=== PATIENT | female | born 1940 | race Caucasian/White ===

== ENCOUNTER 2020-01-13 07:48 | Observation (INO) ==
--- NOTE | 2019-12-11 14:23 | PAT Medication Instructions ---
Medication Instructions Date of Service December 11, 2019 Home Medications Bentyl 20 mg PO UD PRN L.rhamn A-191-L.ac-B.becky-B.noris [Probiotic] 1 cap PO QAM aspirin 81 mg PO QAM cephalexin 500 mg PO TID cetirizine [Zyrtec] 5 mg PO QAM cranberry 1 tab PO QAM docusate sodium [Stool Softener] 100 mg PO QPM esomeprazole magnesium [Nexium] 40 mg PO QAM fluoride (sodium) [Edkimo] 1 applic DENTAL DAILY aznjvjfg-spqzk-tqjca-CF borate [Assmbly] 2 tab PO QPM metronidazole [Metrogel] 1 applic TOPICAL DAILY multivitamin 1 tab PO QAM Continue as directed cephalexin 500 mg PO TID STOP taking 2 weeks before surgery (or as soon as possible if surgery is within 2 weeks) cranberry 1 tab PO QAMY khdoyobt-dcbgn-xvubl-CF borate [Assmbly] 2 tab PO QPM STOP taking 24 hours before surgery metronidazole [Metrogel] 1 applic TOPICAL DAILY DO NOT take the morning of surgery Bentyl 20 mg PO UD PRN L.rhamn A-191-L.ac-B.becky-B.noris [Probiotic] 1 cap PO QAM cetirizine [Zyrtec] 5 mg PO QAM fluoride (sodium) [Edkimo] 1 applic DENTAL DAILY multivitamin 1 tab PO QAM Take morning of surgery With a small sip of water, OTHERWISE NOTHING TO EAT OR DRINK AFTER MIDNIGHT: aspirin 81 mg PO QAM esomeprazole magnesium [Nexium] 40 mg PO QAM Take evening before surgery Bentyl 20 mg PO UD PRN (if needed) docusate sodium [Stool Softener] 100 mg PO QPM Other Notes If you have any questions please call us at [phone] or [phone] or [phone] or [phone]
--- NOTE | 2019-12-14 11:37 | Anesthesiology Consultation ---
Date of Service December 14, 2019 Assessment & Plan (1) Encounter for pre-operative examination: *Per PAT assessment on 12/13: Travel screen negative. No known COVID-19 positive contacts. No current COVID-19 related symptoms. Surgeon arranging preop COVID testing. Awaiting results. - Possible difficult intubation d/t anatomy Chart Review Chart Review: Acceptable Risk for Surgery (pending surgeon-ordered PCP clearance (Dr. Browning/Mouna)) and Patient seen in Pre Admission Testing Teaching & Discussion Pre-Anesthesia Teaching/Discussion Notes: Instructed NPO after midnight before surgery,except medications with 15 cc of water. Medication instructions provided according to the PAT guidelines. History Surgery Operation Date: 01/13/20 10:10 Proposed Procedures p Right Total Knee Arthroplasty - Edward You DO Height/Weight Height: 5 ft Weight: 83.7 kg Allergies Allergy/AdvReac Type Severity Reaction Status Date / Time No Known Allergies Allergy Verified 12/09/19 10:54 Medications Home Medications Medication Instructions Recorded Confirmed Last Taken Bentyl 20 mg PO UD PRN 12/09/19 12/09/19 Unknown L.rhamn A-191-L.ac-B.becky-B.noris 1 cap PO QAM 12/09/19 12/09/19 Unknown [Probiotic] aspirin 81 mg PO QAM 12/09/19 12/09/19 Unknown cephalexin 500 mg PO TID 12/09/19 12/09/19 Unknown cetirizine [Zyrtec] 5 mg PO QAM 12/09/19 12/09/19 Unknown cranberry 1 tab PO QAM 12/09/19 12/09/19 Unknown docusate sodium [Stool Softener] 100 mg PO QPM 12/09/19 12/09/19 Unknown esomeprazole magnesium [Nexium] 40 mg PO QAM 12/09/19 12/09/19 Unknown fluoride (sodium) [Prevident 5000 1 applic DENTAL DAILY 12/09/19 12/09/19 Unknown Ortho Defense] sgmrmtym-foohv-ppubg-CF borate 2 tab PO QPM 12/09/19 12/09/19 Unknown [[facility]] metronidazole [Metrogel] 1 applic TOPICAL DAILY 12/09/19 12/09/19 Unknown multivitamin 1 tab PO QAM 07/29/20 07/29/20 Unknown Past Medical History Medical History Cellulitis cellulitis at site of bug bite (RLE) significantly improving on abx Degenerative disc disease Diverticular disease GERD (gastroesophageal reflux disease) controlled History of DVT (deep vein thrombosis) 2006 (LUE) possibly r/t premarin/IV - treated with AC x 6 mo History of pulmonary embolism 2010 felt r/t premarin - treated with AC x 6 months IBS (irritable bowel syndrome) Mixed sleep apnea BiPAP Obesity Osteoarthritis TMJ dislocation h/o Urinary incontinence Exercise / Class Metabolic Activity III < 4 Walking/Shop/Light housework (uses cane PRN) Past Family History Family History Father Diabetes Other No family history of adverse response to anesthesia Past Surgical History Surgical History History of appendectomy History of arthroscopy of left knee History of bilateral breast reduction surgery History of cardiac catheterization 2003 - no stents History of colonoscopy History of esophagogastroduodenoscopy (EGD) History of hysterectomy History of surgery pelvic floor lift History of tonsillectomy Past Anesthesia History No Hx of Anesthesia Complications (except PONV) and No Family Hx of Anesthesia Complications History of PONV No Hx of Motion Sickness and History of PONV (improvement with scope patch in the past per patient) Social History Smoking Status: Never smoker Do You Dip or Chew Tobacco: No Hx Alcohol Use: Yes Alcohol Intake Frequency Comment: once per month Hx Substance Use: No substance use type: does not use Review of Systems Patient denies chest pain, shortness of breath, fever, chills, cough, wheezing, palpitations. Physical Exam Vital Signs VITALS BP 111/76 P 67 TEMP 98.0 SP02 95%RA RESP 18 PHYSICAL Full neck and c-spine range of motion. Full TMJ range of motion. TMD 2.5 finger breaths Mallampati Score 3 (small oral opening) Dentition: upper left side tooth implant Lungs: clear throughout to auscultation Cardiac: regular rate and rhythm, no murmurs noted Spine: normal Carotid arteries: negative bruit Extremities: non-pitting edema Testing Laboratory Results 12/14/19 12:20 12/14/19 12:20 PT 10.9 Seconds (9.0-12.0) 12/14/19 12:20 INR 1.0 (0.9-1.1) 12/14/19 12:20 APTT 31.3 Seconds (21.0-31.0) H 12/14/19 12:20 Hemoglobin A1c 6.0 % (4.5-5.6) H 12/14/19 12:20 Urine Color Yellow 12/14/19 12:20 Urine Appearance Clear (Clear) 12/14/19 12:20 Urine pH 6.5 (4.5-7.5) 12/14/19 12:20 Ur Specific [place] 1.014 (1.000-1.030) 12/14/19 12:20 Urine Protein Negative (Negative) 12/14/19 12:20 Urine Glucose (UA) Negative (Negative) 12/14/19 12:20 Urine Ketones Negative (Negative) 12/14/19 12:20 Urine Nitrite Negative (Negative) 12/14/19 12:20 Ur Leukocyte Esterase Negative (Negative) 12/14/19 12:20 Blood Type O Positive 12/14/19 12:20 Antibody Screen NEGATIVE 12/14/19 12:20 Electrocardiogram Date: 12/14/19 NSR at 65bpm. LAD. Chest X-Ray Date: 12/14/19 Findings: + NAD
--- NOTE | 2019-12-14 12:48 | XRay Report ---
XR chest Pre-admission PA/Lat CLINICAL HISTORY: pat preoperative COMPARISON STUDY: No previous studies for comparison. FINDINGS: The bones soft tissues and hemidiaphragms are normal. The cardiomediastinal silhouette is n ormal. The lungs are clear. The pulmonary vasculature is normal. IMPRESSION: Negative chest. ACT 112: Negative or not required by law. The above report was generated using voice recognition software. It may contain grammatical, syntax or spelling errors. Electronically signed by: Uriel Maddox M.D. 12/14/2019 12:47 PM
[2019-12-14 13:29] LABS: Basophils # (auto) 0.04 K/uL (0-0.2); Basophils % (auto) 0.6 %; Eosinophils # (auto) 0.16 K/uL (0-0.5); Eosinophils % (auto) 2.5 %; Hematocrit (blood only) 42.2 % (37-47); Hemoglobin 14.3 g/dL (12.0-16.0); Immature Granulocytes # (auto) 0.01 K/uL (0.00-0.02); Immature Granulocytes % (auto) 0.2 %; Lymphocytes # (auto) 2.06 K/uL (1.2-3.4); Lymphocytes % (auto) 32.1 %; Mean Corpuscular Hgb Conc 33.9 g/dL (32-36); Mean Corpuscular Volume 91.5 fL (80-100); Mean Platelet Volume 10.6 fL (7.4-10.4); Monocytes # (auto) 0.58 K/uL (0.11-0.59); Neutrophils # (auto) 3.56 K/uL (1.4-6.5); Neutrophils % (auto) 55.6 %; Platelet Count 268 K/uL (130-400); RDW Coefficient of Variation 13.7 % (11.5-14.5); Red Blood Count 4.61 M/uL (4.2-5.4); White Blood Count 6.41 K/uL (4.8-10.8)
[2019-12-14 13:33] LABS: Appearance Urine Clear (Clear); Bilirubin Urine Negative (Negative); Blood Urine Negative (Negative); Color Urine Yellow; Glucose Urine UA Negative (Negative); Ketones Urine Negative (Negative); Leukocyte Esterase Urine Negative (Negative); Nitrite Urine Negative (Negative); Protein Urine Negative (Negative); Specific Gravity Urine 1.014 (1.000-1.030); Urobilinogen Urine Negative (Negative); pH Urine 6.5 (4.5-7.5)
[2019-12-14 13:39] LABS: Partial Thromboplastin Ratio 1.1; Partial Thromboplastin Time 31.3 Seconds (21.0-31.0); Prothrombin Time 10.9 Seconds (9.0-12.0)
[2019-12-14 13:53] LABS: Estimated Average Glucose 126 mg/dl
[2019-12-14 13:54] LABS: Albumin Level 3.5 gm/dl (3.4-5.0); BUN Creatinine Ratio 28.3 (10-20); Calcium 10.2 mg/dl (8.5-10.1); Creatinine Clr Calc Pharmacy 62.8 ml/min; Est GFR (African American) 93.6; Est GFR (Non-African American) 80.8; Potassium 4.2 mmol/L (3.5-5.1)
--- NOTE | 2019-12-14 17:56 | Electrocardiogram Report ---
Test Reason : Blood Pressure : / mmHG Vent. Rate : 065 BPM Atrial Rate : 065 BPM P-R Int : 156 ms QRS Dur : 084 ms QT Int : 410 ms P-R-T Axes : 069 -74 040 degrees QTc Int : 426 ms Normal sinus rhythm Left axis deviation Abnormal ECG No previous ECGs available Confirmed by Eduardo Norton ([id number]) on 12/14/2019 5:55:43 PM Referred By: Edward You Confirmed By:Brendan Norton
--- NOTE | 2019-12-15 08:48 | History & Physical Report ---
Date of Service December 15, 2019 date of surgery: 01-13-20 Procedure: right total knee replacement Assessment & Plan (1) Arthritis of right knee: Risks and benefits of procedure discussed in detail today, patient would like to proceed with a Right total knee replacement at [facility] as scheduled. will obtain medical clearance prior to surgery as well as obtain PATs at [facility]. Will place on ASA 81mg po bid x 1 month post op, f/u 2 weeks post op for routine post-operative care and x-ray, sooner if having any problems. will make arrangements for HHPT at the time of discharge. At this point in time, has failed conservative measures and would like to proceed with surgical intervention. The risks and benefits have been discussed including, but not limited to, risk of infection, nerve injury, stiffness, loss of motion, failure to improve, etc. Reasonable outcomes and options of treatment were discussed. An explanation of appropriate alternatives to the procedure that may be advantageous were discussed and their risks and benefits, as well as the risks and benefits of not proceeding with treatment. I offered to answer any additional inquiries concerning the treatment involved. All the patient's questions were answered. The patient is agreeable, understanding of the treatment plan and alternatives, and wishes to proceed with the treatment plan. History of Present Illness Chief Complaint: Right knee pain Primary Care Provider: NO PCP Ms Oconnor is a 79 year old female who complains of Right knee pain, presents for pre-op eval prior to a right total knee replacement at [facility]. She presents with pain, stiffness and decreased motion in her right knee. She states that the symptoms have been chronic non-traumatic. her symptoms occur constantly and are gradually worsening. Currently the patient states that the symptoms are moderate-severe. The pain is described as aching and throbbing. She rates her current pain as 5/10. The symptoms are aggravated by daily activities. PATIENT HAS TRIED CORITSONE INJ, TRIED VISCO INJECTION, HAS TRIED CBD OIL, HAS TRIED VOLTAREN GEL, HAS TRIED OTC NSAIDS, ALL WERE OF NO HELP. she does use a cane to assist with ambulation. Allergies Allergy/AdvReac Type Severity Reaction Status Date / Time No Known Allergies Allergy Verified 12/09/19 10:54 Home Medications Home Medications Medication Instructions Recorded Confirmed Type Bentyl 20 mg PO UD PRN 12/09/19 12/09/19 History L.rhamn A-191-L.ac-B.becky-B.noris 1 cap PO QAM 12/09/19 12/09/19 History [Probiotic] aspirin 81 mg PO QAM 12/09/19 12/09/19 History cephalexin 500 mg PO TID 12/09/19 12/09/19 History cetirizine [Zyrtec] 5 mg PO QAM 12/09/19 12/09/19 History cranberry 1 tab PO QAM 12/09/19 12/09/19 History docusate sodium [Stool Softener] 100 mg PO QPM 12/09/19 12/09/19 History esomeprazole magnesium [Nexium] 40 mg PO QAM 12/09/19 12/09/19 History fluoride (sodium) [Prevident 5000 1 applic DENTAL DAILY 12/09/19 12/09/19 History Ortho Defense] irqdvmdr-pqjhy-gfumq-CF borate 2 tab PO QPM 12/09/19 12/09/19 History [[facility]] metronidazole [Metrogel] 1 applic TOPICAL DAILY 12/09/19 12/09/19 History multivitamin 1 tab PO QAM 12/09/19 12/09/19 History Past Med/Surg History Medical History Cellulitis cellulitis at site of bug bite (RLE) significantly improving on abx Degenerative disc disease Diverticular disease GERD (gastroesophageal reflux disease) controlled History of DVT (deep vein thrombosis) 2006 (LUE) possibly r/t premarin/IV - treated with AC x 6 mo History of pulmonary embolism 2010 felt r/t premarin - treated with AC x 6 months IBS (irritable bowel syndrome) Mixed sleep apnea BiPAP Obesity Osteoarthritis TMJ dislocation h/o Urinary incontinence Surgical History History of appendectomy History of arthroscopy of left knee History of bilateral breast reduction surgery History of cardiac catheterization 2003 - no stents History of colonoscopy History of esophagogastroduodenoscopy (EGD) History of hysterectomy History of surgery pelvic floor lift History of tonsillectomy Family History Father Diabetes Other No family history of adverse response to anesthesia Social History Smoking Status: Never smoker Second Hand Exposure: No; Do You Dip or Chew Tobacco: No; Hx Alcohol Use: Yes Hx Substance Use: No Preferred Language: Austrian Communication Ability: Effective Toolsmith Required: No Beliefs That Will Affect Care: Jehovah'S Witness Jehovah'S Witness Beliefs: religious Current Living Situation: Spouse Feels Safe at Home: Yes Safety Concerns: Feels Safe At This Time Review of Systems Review of Systems: All systems reviewed & are unremarkable except as noted in HPI & below Constitutional: no fever, no chills and no sweats Respiratory: no cough and no dyspnea Cardiovascular: no chest pain, no dyspnea and no orthopnea Gastrointestinal: no abdominal pain, no nausea and no vomiting Musculoskeletal: as per Subjective / HPI Physical Exam Physical Exam: Ht: 5ft Wt: 83.7kg BP: 128/78 Constitutional: WD/WN, vitals as above no acute distress Respiratory: normal respiratory effort, lungs clear to auscultation no respiratory distress, no labored breathing and does not use accessory muscles Cardiovascular: RRR, no murmur, no edema Gastrointestinal (Abdomen): normal bowel sounds, soft, nontender, no hepatosplenomegaly Musculoskeletal: Knee: + knee abnormal to inspection (Right knee ), + effusion (+1 effusion), + limited ROM of knee (ROM 0/3/110), + knee ROM with crepitation, + joint line tenderness (medial joint line) and + Estella's sign positive; no deformity, no skin erythema, no ecchymosis, no valgus laxity, no varus laxity, anterior drawer test negative, Sunil's sign negative and pivot shift test negative Results & Data Results & Data ([facility]) Laboratory Results Laboratory Results WBC 6.41 K/uL (4.8-10.8) 12/14/19 12:20 RBC 4.61 M/uL (4.2-5.4) 12/14/19 12:20 Hgb 14.3 g/dL (12.0-16.0) 12/14/19 12:20 Hct 42.2 % (37-47) 12/14/19 12:20 MCV 91.5 fL (80-100) 12/14/19 12:20 MCH 31.0 pg (25-34) 12/14/19 12:20 MCHC 33.9 g/dL (32-36) 12/14/19 12:20 RDW Std Deviation 46.0 fL (36.4-46.3) 12/14/19 12: RDW Coeff of Poppy 13.7 % (11.5-14.5) 12/14/19 12:20 Plt Count 268 K/uL (130-400) 12/14/19 12: MPV 10.6 fL (7.4-10.4) H 12/14/19 12:20 Immature Gran % (Auto) 0.2 % 12/14/19 12:20 Neut % (Auto) 55.6 % 12/14/19 12:20 Lymph % (Auto) 32.1 % 12/14/19 12:20 Gregory % (Auto) 9.0 % 12/14/19 12:20 Eos % (Auto) 2.5 % 12/14/19 12:20 Baso % (Auto) 0.6 % 12/14/19 12:20 Neut # (Auto) 3.56 K/uL (1.4-6.5) 12/14/19 12:20 Lymph # (Auto) 2.06 K/uL (1.2-3.4) 12/14/19 12:20 Gregory # (Auto) 0.58 K/uL (0.11-0.59) 12/14/19 12:20 Eos # (Auto) 0.16 K/uL (0-0.5) 12/14/19 12: Baso # (Auto) 0.04 K/uL (0-0.2) 12/14/19 12: Immature Gran # (Auto) 0.01 K/uL (0.00-0.02) 12/14/19 12:20 PT 10.9 Seconds (9.0-12.0) 12/14/19 12:20 INR 1.0 (0.9-1.1) 12/14/19 12:20 APTT 31.3 Seconds (21.0-31.0) H 12/14/19 12:20 PTT Ratio 1.1 12/14/19 12:20 Sodium 140 mmol/L (136-145) 12/14/19 12:20 Potassium 4.2 mmol/L (3.5-5.1) 12/14/19 12:20 Chloride 107 mmol/L (98-107) 12/14/19 12:20 Carbon Dioxide 27 mmol/L (21-32) 12/14/19 12:20 Anion Gap 6.0 (3-11) 12/14/19 12:20 BUN 20 mg/dl (7-18) H 12/14/19 12:20 Creatinine 0.72 mg/dl (0.6-1.2) 12/14/19 12:20 Est Cr Clr Drug Dosing 62.8 ml/min 12/14/19 12:20 Est GFR ( Amer) 93.6 12/14/19 12:20 Est GFR (Non-Af Amer) 80.8 12/14/19 12:20 BUN/Creatinine Ratio 28.3 (10-20) H 12/14/19 12:20 Glucose 103 mg/dl (70-99) H 12/14/19 12:20 Estimat Average Glucose 126 mg/dl 12/14/19 12:20 Hemoglobin A1c 6.0 % (4.5-5.6) H 12/14/19 12:20 Calcium 10.2 mg/dl (8.5-10.1) H 12/14/19 12:20 Albumin 3.5 gm/dl (3.4-5.0) 12/14/19 12:20 Urine Color Yellow 12/14/19 12:20 Urine Appearance Clear (Clear) 12/14/19 12:20 Urine pH 6.5 (4.5-7.5) 12/14/19 12:20 Ur Specific [place] 1.014 (1.000-1.030) 12/14/19 12:20 Urine Protein Negative (Negative) 12/14/19 12:20 Urine Glucose (UA) Negative (Negative) 12/14/19 12:20 Urine Ketones Negative (Negative) 12/14/19 12:20 Urine Blood Negative (Negative) 12/14/19 12:20 Urine Nitrite Negative (Negative) 12/14/19 12:20 Urine Bilirubin Negative (Negative) 12/14/19 12:20 Urine Urobilinogen Negative (Negative) 12/14/19 12:20 Ur Leukocyte Esterase Negative (Negative) 12/14/19 12:20 Blood Type O Positive 12/14/19 12:20 Antibody Screen NEGATIVE 12/14/19 12:20 Diagnostic Findings Right Knee X-ray: Right knee series showing advanced degenerative changes to the right knee, narrowing of the medial compartment and patello-femoral joint with patellar spurring noted, findings showing joint space narrowing of the medial compartment and patello-femoral joint, osteophyte formation and subchondral sclerosis noted. overall varus alignment. no acute bony pathology noted.
[~2020-01-13 07:48] MED LIST: ACETAMINOPHEN 500 MG TAB PO SCH; CEFAZOLIN 2000MG 2,000 MG/15 ML SYR IV SCH; CeleBREX 200 MG CAP PO SCH; FAMOTIDINE 20 MG TAB PO SCH; GABAPENTIN 300 MG CAP PO SCH; LR 500ML BOLUS, THEN 15ML/HR IV SCH; METOCLOPRAMIDE HCL 10 MG TABLET PO SCH; ROPIVACAINE 0.5% HCL/PF 150 MG, BUPIVACAINE 0.5% MPF 30 ML, EPINEPHrine 30MG/30ML (OR U... INSTIL SCH; TRANEXAMIC ACID 1,000 MG **IV Intra-op IV SCH; TRANEXAMIC ACID 1,000 MG **IV Pre-op IV SCH; dexAMETHasone 4 MG TAB PO SCH
[2020-01-13] MEDS ORDERED: BUPIVACAINE 0.25% 30 ML VIAL ONE (08:33)
[2020-01-13] MEDS ORDERED: BUPIVACAINE 0.5 % 5 MG/1 ML PF 10ML VIAL ONE (08:33)
--- NOTE | 2020-01-13 09:23 | History & Physical Bridge Note ---
Date of Service January 13, 2020 History & Physical Bridge Note I have examined the patient, reviewed the History & Physical and in the interval since the performance of the History & Physical I have noted the following changes of clinical significance: no changes noted
[2020-01-13] MEDS ORDERED: MIDAZOLAM HCL 1 MG/ML 2ML VIAL ONE (09:25)
[2020-01-13] MEDS ORDERED: Nursing to Pharmacy Communication SCH (09:30)
[2020-01-13] MEDS ORDERED: BACITRACIN INJ 50,000 UNIT VIAL ONE (09:54)
[2020-01-13] MEDS ORDERED: ORTHO JOINT ANESTHETIC ONE (09:54)
[2020-01-13] MEDS ORDERED: fentaNYL citrate 100 MCG/2 ML VIAL IV PRN (10:11)
[2020-01-13] MEDS ORDERED: ONDANSETRON INJ 2 MG/ML 2 ML VIAL IV PRN ×2 (10:11→14:11)
[2020-01-13] MEDS ORDERED: ATROPINE SULFATE 0.1 MG/ML 10ML SYR IV PRN (10:11)
[2020-01-13] MEDS ORDERED: ePHEDrine sulfate 50 MG/ML AMP IV PRN (10:11)
[2020-01-13] MEDS ORDERED: PROPOFOL IV EMULSION 10 MG/ML 20 ML VIAL IV ONE (10:55)
--- NOTE | 2020-01-13 11:25 | Operative Report ---
Post Operative Report Pre & Post Diagnosis Operation Date: 01/13/20 10:45 Pre-Op Diagnosis: Unilateral Primary Osteoarthritis of Right Knee Post-Op Diagnosis: Unilateral Primary Osteoarthritis of Right Knee I identified the patient and participated in the time-out.: Yes Procedure Operation Date: 01/13/20 10:45 Actual Procedures p Right Total Knee Arthroplasty(Right) utilizing [employer] journey 2 patient matched total knee arthroplasty size 3 femur to tibia 15 polyethylene 29 oval patella- Edwadr You DO Surgeon Edward You DO Prospecting Driller Itz ESPINOSA Estimated Blood Loss 5 Findings Consistent with Post-Op Diagnosis Patient presents with ongoing complaints of pain lateral to the right knee no response to conservative management patient has severe end-stage DJD varus alignment [id number] subchondral sclerosis varus alignment marginal osteophytes and moderate to large effusion Specimens Bone and cartilage Drains Medium bore Hemovac Anesthesia Type MAC Spinal Regional Disposition Accompanied Patient To Recovery: No Disposition: Recovery Room Indications Patient presents with severe end-stage DJD right knee no response to co nservative management clinic physical therapy anti-inflammatories relative rest activity modification corticosteroid injection Visco supplementation above intraoperative findings no time surgery. Description of Procedure After proper prepping and draping of the Right lower extremity anterior midline incision was made over the region of the extensor extensor mechanism after meticulous hemostasis was obtained and maintained in subcutaneous tissues a medial parapatellar incision was made The patella was subluxed lateralward the medial lateral gutter were cleaned from any hypertrophic synovitis and scar tissue of the distal femoral block was placed and the distal femoral osteotomy cut was made subsequently the chamfers anterior and posterior osteotomy cuts were made utilizing the 4-in-1 block the tibia was subsequently subluxed anteriorward medial and ateral meniscal remnants were excised in their entirety remnants of the anterior and posterior cruciate ligaments were excised in their entirety excellent exposure of the proximal tibia was obtained the tibial osteotomy guide was placed on the proximal tibial osteotomy cut was made once ag ain the knee was irrigated with copious amounts of sterile saline solution the patella was subsequently everted lateralward thickened scar tissue around the patella was removed the patella was subsequently cut utilizing a freehand technique and was drilled prepared for final preparation and placement of patella socially flexion-extension gaps were checked and the equal and symmetric trials were placed to the appropriate femoral and tibial trials with poly-spacer being placed for equal flexion and extension gaps and full range of motion including extension to 0 and flexion to 140 the trial components after having been taken to recovery range of motion was subsequently removed meticulous hemostasis was obtained and maintained subsequently a knee block injection of joint cocktail including ropivacaine 0.5% 150 mg. Bupivacaine 0.5% epinephrine 1-200,030 mL's toradol 30 mg dexamethasone 4 mg ketamine 10 mg clonidine 100 micrograms normal saline solution 30 mg was infiltrated into the soft tissues of the posterior knee medial lateral gutters and periosteal synovium special attention was paid to protect neurovascular structures at all times subsequently trial components having been removed the knee was irrigated with sterile saline solution. debris was removed the proximal tibia was subsequently prepared and was made ready for the placement of the tibial component tibial component was also cemented and tamped into position the femoral component was subsequently placed and cemented in the position the patellar component was subsequently cemented in position because hemostasis once again obtained and maintained wound having been thoroughly irrigated with debridement and debridement lavage was performed as well as a medial parapatellar incision closed with #1 Vicryl in interrupted fashion subcutaneous was closed with #2 Vicryl skin was closed with skin clips. PA-C was necessary for prepping and drapping as well as wound closure of deep fascia Sub cutaneous tissue and skin and was necessary for the case. A sterile compressive dressing was placed patient was taken to recovery in stable condition of report dictated by Avelino I attest to the content of the Intraoperative Record and any orders documented therein. Any exceptions are noted below. I attest to the content of the Intraoperative Record and any orders documented therein. Any exceptions are noted below.
--- NOTE | 2020-01-13 12:57 | XRay Report ---
XR knee RT 1 or 2V routine CLINICAL HISTORY: Postoperative evaluation. COMPARISON: None FINDINGS: Alignment of the total right knee arthroplasty is anatomic. There is no periprosthetic fra cture or unexpected radiopaque foreign body. There are skin aram and surgical drains. IMPRESSION: Expected findings following total right knee arthroplasty. ACT 112: Negative or not required by law. Electronically signed by: Rohit West M.D. 01/13/2020 12:56 PM
[2020-01-13] MEDS ORDERED: bisacodyL 10 MG SUPP PR PRN (14:11)
[2020-01-13] MEDS ORDERED: MAGNESIUM HYDROXIDE SUSP 30 ML UDC PO PRN (14:11)
[2020-01-13] MEDS ORDERED: NALOXONE HCL 0.4 MG/1 ML VIAL/CARP IV PRN (14:11)
--- NOTE | 2020-01-13 15:12 | Anesthesiology Progress Note ---
Date of Service January 13, 2020 Anesthesia Post Procedure Vital Signs Vital Signs: Temp Pulse Pulse Resp BP Pulse Ox 01/13/20 15:10 74 18 126/75 94 01/13/20 13:30 68 12 112/61 98 01/13/20 13:20 36.0 C L 62 12 101/60 98 01/13/20 13:10 57 L 12 105/69 98 01/13/20 13:00 61 14 105/62 97 01/13/20 12:50 62 12 103/62 95 01/13/20 12:40 68 12 109/60 93 01/13/20 12:30 72 17 97/58 L 99 01/13/20 12:20 70 17 107/57 L 99 01/13/20 12:10 77 17 113/57 L 99 01/13/20 12:08 36.3 C L 84 13 103/54 L 98 01/13/20 09:48 68 20 131/73 98 01/13/20 08:31 36.8 C 68 18 141/88 H 96 Transfer of Care Handoff Completed per policy Notes Mental Status: alert / awake / arousable and participated in evaluation Patient Amnestic to Procedure: Yes Nausea / Vomiting: adequately controlled Pain: adequately controlled Airway Patency, RR, SpO2: stable & adequate BP & HR: stable & adequate Hydration State: stable & adequate Neuraxial Anesthesia: was administered and sensory block is resolving Anesthetic Complications: no major complications apparent and Pt Satisfied with anesthetic care
[2020-01-13] MEDS: SODIUM CHLORIDE 0.9% 1000ML 1,000 ML IV SCH (15:37)
[2020-01-13] MEDS: ACETAMINOPHEN 500 MG TAB PO SCH ×2 (15:39→21:30)
[2020-01-13] MEDS: FERROUS GLUCONATE 324 MG TAB PO SCH (18:20)
[2020-01-13] MEDS: CEFAZOLIN 2000MG 2,000 MG/15 ML SYR IV SCH (18:23)
[2020-01-13] MEDS: OXYCODONE HCL IR 5 MG TAB (IMMEDIATE RELEASE) PO PRN (20:24)
[2020-01-13] MEDS: SENNA 8.6 MG TAB PO SCH (20:26)
[2020-01-13] MEDS: ASPIRIN 325 MG ECTAB PO SCH ×2 (20:26→20:27)
[2020-01-13] MEDS: DOCUSATE SODIUM 100 MG CAP PO SCH (20:26)
[2020-01-14] MEDS: OXYCODONE HCL IR 5 MG TAB (IMMEDIATE RELEASE) PO PRN ×5 (01:26→22:33)
[2020-01-14] MEDS: CEFAZOLIN 2000MG 2,000 MG/15 ML SYR IV SCH (01:27)
[2020-01-14] MEDS: SODIUM CHLORIDE 0.9% 1000ML 1,000 ML IV SCH (01:27)
[2020-01-14] MEDS: HYDROmorphone INJ 0.5 MG/0.5 ML SYR IV PRN ×3 (02:55→13:53)
[2020-01-14] MEDS: ACETAMINOPHEN 500 MG TAB PO SCH ×3 (05:38→22:33)
[2020-01-14 05:59] LABS: Hematocrit (blood only) 35.2 % (37-47); Hemoglobin 11.5 g/dL (12.0-16.0); Mean Corpuscular Hemoglobin 30.1 pg (25-34); Mean Corpuscular Hgb Conc 32.7 g/dL (32-36); Mean Corpuscular Volume 92.1 fL (80-100); Mean Platelet Volume 10.3 fL (7.4-10.4); Platelet Count 213 K/uL (130-400); RDW Coefficient of Variation 13.5 % (11.5-14.5); RDW Standard Deviation 45.5 fL (36.4-46.3); Red Blood Count 3.82 M/uL (4.2-5.4); White Blood Count 9.99 K/uL (4.8-10.8)
[2020-01-14 06:34] LABS: BUN Creatinine Ratio 30.8 (10-20); Calcium 8.8 mg/dl (8.5-10.1); Creatinine Clr Calc Pharmacy 72.6 ml/min; Est GFR (African American) 100.8; Potassium 3.9 mmol/L (3.5-5.1)
[2020-01-14] MEDS: CETIRIZINE HCL 10 MG TABLET PO SCH (08:37)
[2020-01-14] MEDS: LACTOBACILLUS ACIDOPHILUS (FLORANEX) TAB PO SCH (08:37)
[2020-01-14] MEDS: ASPIRIN 325 MG ECTAB PO SCH ×2 (08:38→19:13)
[2020-01-14] MEDS: DOCUSATE SODIUM 100 MG CAP PO SCH ×2 (08:38→19:13)
[2020-01-14] MEDS: MULTIVITAMIN TAB PO SCH (08:38)
[2020-01-14] MEDS: FERROUS GLUCONATE 324 MG TAB PO SCH ×2 (08:39→17:35)
--- NOTE | 2020-01-14 09:45 | Orthopedic Progress Note ---
Date of Service January 14, 2020 Assessment & Plan (1) Arthritis of right knee: Postop day 1 status post right total knee arthroplasty PT/OT protocol. Weightbearing as tolerated. DVT prophylaxis-aspirin p.o. twice daily, SCDs Continue pain management as written 1236pm Pt having much more pain at this time. Add Toradol to pain control. Pt realizing she is not taking her pain medications regularly. Discussed how often and that she has to ask for them. Will recheck later today. Admission and Anticipated Discharge Date Admission Date: January 13, 2020 Subjective Postop day 1 Patient currently working with physical therapy. No complaints today. She was having pain last night that required IV medication but this morning she is doing fine. Denies shortness of breath, chest pain, lightheadedness. No other complaints at this time. Physical Exam Physical Exam: Dressings are clean, dry, and intact. Calves are soft nontender. Neurovascular intact. Toes are mobile. Hemovac drainage was 75 mL's from the previous shift. Results & Data ([facility]) Vital Signs (Past 12 Hours) Vital Signs Temp Pulse Resp BP BP Pulse Ox 01/14/20 07:15 36.5 C 62 16 112/71 95 01/14/20 03:15 36.6 C 55 L 16 96/57 L 93 01/14/20 02:54 107/67 01/13/20 23:01 36.5 C 64 16 104/65 93 Laboratory Results Laboratory Results WBC 9.99 K/uL (4.8-10.8) 01/14/20 05:33 RBC 3.82 M/uL (4.2-5.4) L 01/14/20 05:33 Hgb 11.5 g/dL (12.0-16.0) L 01/14/20 05:33 Hct 35.2 % (37-47) L 01/14/20 05:33 MCV 92.1 fL (80-100) 01/14/20 05:33 MCH 30.1 pg (25-34) 01/14/20 05:33 MCHC 32.7 g/dL (32-36) 01/14/20 05:33 RDW Std Deviation 45.5 fL (36.4-46.3) 01/14/20 05:33 RDW Coeff of Poppy 13.5 % (11.5-14.5) 01/14/20 05:33 Plt Count 213 K/uL (130-400) 01/14/20 05:33 MPV 10.3 fL (7.4-10.4) 01/14/20 05:33 Immature Gran % (Auto) 0.2 % 12/14/19 12:20 Neut % (Auto) 55.6 % 12/14/19 12:20 Lymph % (Auto) 32.1 % 12/14/19 12:20 [place] % (Auto) 9.0 % 12/14/19 12:20 Eos % (Auto) 2.5 % 12/14/19 12:20 Baso % (Auto) 0.6 % 12/14/19 12:20 Neut # (Auto) 3.56 K/uL (1.4-6.5) 12/14/19 12:20 Lymph # (Auto) 2.06 K/uL (1.2-3.4) 12/14/19 12:20 Clinton # (Auto) 0.58 K/uL (0.11-0.59) 12/14/19 12:20 Eos # (Auto) 0.16 K/uL (0-0.5) 12/14/19 12:20 Baso # (Auto) 0.04 K/uL (0-0.2) 12/14/19 12:20 Immature Gran # (Auto) 0.01 K/uL (0.00-0.02) 12/14/19 12:20 PT 10.9 Seconds (9.0-12.0) 12/14/19 12:20 INR 1.0 (0.9-1.1) 12/14/19 12:20 APTT 31.3 Seconds (21.0-31.0) H 12/14/19 12:20 PTT Ratio 1.1 12/14/19 12:20 Sodium 140 mmol/L (136-145) 01/14/20 05:33 Potassium 3.9 mmol/L (3.5-5.1) 01/14/20 05:33 Chloride 110 mmol/L (98-107) H 01/14/20 05:33 Carbon Dioxide 24 mmol/L (21-32) 01/14/20 05:33 Anion Gap 6.0 (3-11) 09/03/20 05:33 BUN 19 mg/dl (7-18) H 01/14/20 05:33 Creatinine 0.62 mg/dl (0.6-1.2) 01/14/20 05:33 Est Cr Clr Drug Dosing 72.6 ml/min 01/14/20 05:33 Est GFR ( Amer) 100.8 01/14/20 05:33 Est GFR (Non-Af Amer) 87.0 01/14/20 05:33 BUN/Creatinine Ratio 30.8 (10-20) H 01/14/20 05:33 Glucose 109 mg/dl (70-99) H 01/14/20 05:33 Estimat Average Glucose 126 mg/dl 12/14/19 12:20 Hemoglobin A1c 6.0 % (4.5-5.6) H 12/14/19 12:20 Calcium 8.8 mg/dl (8.5-10.1) 01/14/20 05:33 Albumin 3.5 gm/dl (3.4-5.0) 12/14/19 12:20 Urine Color Yellow 12/14/19 12:20 Urine Appearance Clear (Clear) 12/14/19 12:20 Urine pH 6.5 (4.5-7.5) 12/14/19 12:20 Ur Specific Shaw 1.014 (1.000-1.030) 12/14/19 12:20 Urine Protein Negative (Negative) 12/14/19 12:20 Urine Glucose (UA) Negative (Negative) 12/14/19 12:20 Urine Ketones Negative (Negative) 12/14/19 12:20 Urine Blood Negative (Negative) 12/14/19 12:20 Urine Nitrite Negative (Negative) 12/14/19 12:20 Urine Bilirubin Negative (Negative) 12/14/19 12:20 Urine Urobilinogen Negative (Negative) 12/14/19 12:20 Ur Leukocyte Esterase Negative (Negative) 12/14/19 12:20 Blood Type O Positive 12/14/19 12:20 Antibody Screen NEGATIVE 12/14/19 12:20
[2020-01-14] MEDS: KETOROLAC TROMETHAMINE 15 MG/ML VIAL IV SCH ×2 (12:45→18:33)
[2020-01-14] MEDS ORDERED: LORazepam 0.5 MG/1 ML VIAL IV PRN (16:35)
[2020-01-14] MEDS: SENNA 8.6 MG TAB PO SCH (19:13)
[2020-01-15] MEDS: KETOROLAC TROMETHAMINE 15 MG/ML VIAL IV SCH ×2 (01:09→07:28)
[2020-01-15] MEDS: OXYCODONE HCL IR 5 MG TAB (IMMEDIATE RELEASE) PO PRN ×3 (02:37→11:48)
[2020-01-15] MEDS: ACETAMINOPHEN 500 MG TAB PO SCH (05:09)
--- NOTE | 2020-01-15 07:22 | Orthopedic Progress Note ---
Date of Service January 15, 2020 Assessment & Plan (1) Arthritis of right knee: Postop day 2 status post right total knee arthroplasty PT/OT protocol. Weightbearing as tolerated. DVT prophylaxis-aspirin p.o. twice daily, SCDs Continue pain management as written Admission and Anticipated Discharge Date Admission Date: January 13, 2020 Subjective POD #2 s/p Right TKA Review of Systems Review of Systems: All systems reviewed & are unremarkable except as noted in HPI & below Constitutional: no fever and no chills Respiratory: no cough and no dyspnea Cardiovascular: no chest pain, no dyspnea and no orthopnea Gastrointestinal: no abdominal pain, no nausea and no vomiting Physical Exam Physical Exam: Vital Signs Temp 36.7 C 01/14/20 23:07 Pulse 71 01/14/20 23:07 Resp 16 01/14/20 23:07 BP 120/66 01/14/20 23:07 Pulse Ox 92 01/14/20 23:07 Intake & Output 01/14/20 01/15/20 01/15/20 18:59 06:59 18:59 Intake Total 1466.667 / 2216.66 7 750 / 2216.667 Output Total 450 / 1550 1100 / 1550 Balance 1016.667 / 666.667 -350 / 666.667 Intake: IV 966.667 / 966.667 Nss 1000ML 1,0 00 ml @ 100 mls/ 966.667 / 966.667 hr IV .Q10H SC H Rx#:[id number] Oral 500 / 1250 750 / 1250 Output: Urine 350 / 1350 1000 / 1350 Drain Output 100 / 200 100 / 200 Right Hemovac #1 100 / 200 100 / 200 Other: # Unmeasured Voi ds 1 Constitutional: WD/WN, vitals as above no acute distress Musculoskeletal: Right leg: NVDI, calf SNT, negative reema sign. DP palpable, able to wiggle toes/ankle movement without difficulty. dressing clean dry and intact. expected post-operative bruising noted. Results & Data ([facility]) Vital Signs (Past 12 Hours) Vital Signs Temp Pulse Resp BP Pulse Ox 01/14/20 23:07 36.7 C 71 16 120/66 92 Laboratory Results Laboratory Results WBC 9.99 K/uL (4.8-10.8) 01/14/20 05:33 RBC 3.82 M/uL (4.2-5.4) L 01/14/20 05:33 Hgb 11.5 g/dL (12.0-16.0) L 01/14/20 05:33 Hct 35.2 % (37-47) L 01/14/20 05:33 MCV 92.1 fL (80-100) 01/14/20 05:33 MCH 30.1 pg (25-34) 01/14/20 05:33 MCHC 32.7 g/dL (32-36) 01/14/20 05:33 RDW Std Deviation 45.5 fL (36.4-46.3) 01/14/20 05:33 RDW Coeff of Poppy 13.5 % (11.5-14.5) 01/14/20 05:33 Plt Count 213 K/uL (130-400) 01/14/20 05:33 MPV 10.3 fL (7.4-10.4) 01/14/20 05:33 Immature Gran % (Auto) 0.2 % 12/14/19 12:20 Neut % (Auto) 55.6 % 12/14/19 12:20 Lymph % (Auto) 32.1 % 12/14/19 12:20 [place] % (Auto) 9.0 % 12/14/19 12:20 Eos % (Auto) 2.5 % 12/14/19 12:20 Baso % (Auto) 0.6 % 12/14/19 12:20 Neut # (Auto) 3.56 K/uL (1.4-6.5) 12/14/19 12:20 Lymph # (Auto) 2.06 K/uL (1.2-3.4) 12/14/19 12:20 [place] # (Auto) 0.58 K/uL (0.11-0.59) 12/14/19 12:20 Eos # (Auto) 0.16 K/uL (0-0.5) 12/14/19 12:20 Baso # (Auto) 0.04 K/uL (0-0.2) 12/14/19 12:20 Immature Gran # (Auto) 0.01 K/uL (0.00-0.02) 12/14/19 12:20 PT 10.9 Seconds (9.0-12.0) 12/14/19 12:20 INR 1.0 (0.9-1.1) 12/14/19 12:20 APTT 31.3 Seconds (21.0-31.0) H 12/14/19 12:20 PTT Ratio 1.1 12/14/19 12:20 Sodium 140 mmol/L (136-145) 01/14/20 05:33 Potassium 3.9 mmol/L (3.5-5.1) 01/14/20 05:33 Chloride 110 mmol/L (98-107) H 01/14/20 05:33 Carbon Dioxide 24 mmol/L (21-32) 01/14/20 05:33 Anion Gap 6.0 (3-11) 01/14/20 05:33 BUN 19 mg/dl (7-18) H 01/14/20 05:33 Creatinine 0.62 mg/dl (0.6-1.2) 01/14/20 05:33 Est Cr Clr Drug Dosing 72.6 ml/min 01/14/20 05:33 Est GFR ( Amer) 100.8 01/14/20 05:33 Est GFR (Non-Af Amer) 87.0 01/14/20 05:33 BUN/Creatinine Ratio 30.8 (10-20) H 01/14/20 05:33 Glucose 109 mg/dl (70-99) H 01/14/20 05:33 Estimat Average Glucose 126 mg/dl 12/14/19 12:20 Hemoglobin A1c 6.0 % (4.5-5.6) H 12/14/19 12:20 Calcium 8.8 mg/dl (8.5-10.1) 01/14/20 05:33 Albumin 3.5 gm/dl (3.4-5.0) 12/14/19 12:20 Urine Color Yellow 12/14/19 12:20 Urine Appearance Clear (Clear) 12/14/19 12:20 Urine pH 6.5 (4.5-7.5) 12/14/19 12:20 Ur Specific [place] 1.014 (1.000-1.030) 12/14/19 12:20 Urine Protein Negative (Negative) 12/14/19 12:20 Urine Glucose (UA) Negative (Negative) 12/14/19 12:20 Urine Ketones Negative (Negative) 12/14/19 12:20 Urine Blood Negative (Negative) 12/14/19 12:20 Urine Nitrite Negative (Negative) 12/14/19 12:20 Urine Bilirubin Negative (Negative) 12/14/19 12:20 Urine Urobilinogen Negative (Negative) 12/14/19 12:20 Ur Leukocyte Esterase Negative (Negative) 12/14/19 12:20 Blood Type O Positive 12/14/19 12:20 Antibody Screen NEGATIVE 12/14/19 12:20
[2020-01-15] MEDS: FERROUS GLUCONATE 324 MG TAB PO SCH (07:36)
[2020-01-15] MEDS: ASPIRIN 325 MG ECTAB PO SCH (08:42)
[2020-01-15] MEDS: LACTOBACILLUS ACIDOPHILUS (FLORANEX) TAB PO SCH (08:42)
[2020-01-15] MEDS: DOCUSATE SODIUM 100 MG CAP PO SCH (08:42)
[2020-01-15] MEDS: MULTIVITAMIN TAB PO SCH (08:43)
[2020-01-15] MEDS: CETIRIZINE HCL 10 MG TABLET PO SCH (08:43)
--- NOTE | 2020-01-20 07:49 | Discharge Summary ---
Date of Service January 20, 2020 Admission HPI Per Admitting Provider Ms Oconnor is a 79 year old female who complains of Right knee pain, presents for pre-op eval prior to a right total knee replacement at [facility]. She presents with pain, stiffness and decreased motion in her right knee. She states that the symptoms have been chronic non-traumatic. her symptoms occur constantly and are gradually worsening. Currently the patient states that the symptoms are moderate-severe. The pain is described as aching and throbbing. She rates her current pain as 5/10. The symptoms are aggravated by daily activities. PATIENT HAS TRIED CORITSONE INJ, TRIED VISCO INJECTION, HAS TRIED CBD OIL, HAS TRIED VOLTAREN GEL, HAS TRIED OTC NSAIDS, ALL WERE OF NO HELP. she does use a cane to assist with ambulation. Admission Exam Per Admitting Provider Physical Exam: Ht: 5ft Wt: 83.7kg BP: 128/78 Constitutional: WD/WN, vitals as above no acute distress Respiratory: normal respiratory effort, lungs clear to auscultation no respiratory distress, no labored breathing and does not use accessory muscles Cardiovascular: RRR, no murmur, no edema Gastrointestinal (Abdomen): normal bowel sounds, soft, nontender, no hep atosplenomegaly Musculoskeletal: Knee: + knee abnormal to inspection (Right knee ), + effusion (+1 effusion), + limited ROM of knee (ROM 0/3/110), + knee ROM with crepitation, + joint line tenderness (medial joint line) and + Estella's sign positive; no deformity, no skin erythema, no ecchymosis, no valgus laxity, no varus laxity, anterior drawer test negative, Sunil's sign negative and pivot shift test negative Principal Diagnosis Right Knee Djd Discharge Data Allergies Allergy/AdvReac Type Severity Reaction Status Date / Time No Known Allergies Allergy Verified 01/13/20 08:25 Consultations 01/13/20 14:11 Consult Case Management - Discharge Planning Routine Procedures Performed Operation Date: 01/13/20 10:45 Actual Procedures p Right Total Knee Arthroplasty(Right) - Edward You DO Ordered Studies 01/13/20 05:00 US - OR guided needle placemen Routine Hospital Course (1) Arthritis of right knee: Pt was admitted on the above noted date and had the above noted surgery of which she tolerated well. On her first POD, she was remaining stable and feeling well. Pt was working with PT upon the visit and was progressing well. VSS, AFeb. Hgb 11.5. Dressings were C/D/I. Calves soft, NT. NV intact. Seeing the pt later at lunch time, she was having much more pain requiring IV medication. It was noted she was not taking her po meds as ordered and this was discussed. IV Toradol was added for additional pain control and she was continued on her TKA protocol. By POD 2, she was having much better pain control. She was progressing with her PT. Dressing was changed and drain was removed. OIDLIA dressing remained intact. VSS, Afeb. It was felt she was stable for DC to home. Total Time Total Time Spent Total Time Spent (In Minutes): 5 Discharge Plan Discharge Items Patient Disposition: Home - Home Health Services Reason For Visit: Unilateral Primary Osteoarthritis of Right Knee Discharge Diagnosis: Right Knee Osteoarthritis Condition on Discharge: Good Activity: Per Instructions section Lifting: Wait until after follow-up appointment Weightbearing: Right weightbearing Weightbearing Comment: as tolerated with walker Non-emergency contact: Surgeon Call non-emergency contact if: your pain is not controlled, your temperature is above 101.5, your wound has increased redness and your wound has increased drainage Follow-up/Referrals: Denita Browning DO [Primary Care Provider] - Diet: Regular Addtl Attending Provider Instructions: ACTIVITY RECOMMENDATIONS: SELF CARE INSTRUCTIONS AFTER TOTAL KNEE REPLACEMENT A. You may need to continue a physical therapy program after discharge from the hospital. There are several options available to you. Your doctor will assist you in selecting the best one for you. 1. An out-patient facility 2 to 3 times a week for therapy or home therapy. 2. Continue working on all exercises taught to you in the hospital. Your goals should be to increase bending of your knee to 90 degrees and beyond and to fully straighten your knee. B. You may progress at your own pace from walking with a walker or crutches to a cane; then to no assistive devices. C. Make walking a part of your daily routine. Be up as much as comfortable with rest periods throughout the day. Rest with leg elevation is very important. Use the ice wrap frequently for the first 3-4 weeks. D. There are no restrictions on activities. You may ride in a car, shop, participate in shell reprint operator and all social activities. E. Wear the long elastic stockings (LEIGHA hose) 20 hours a day for 2 weeks after surgery. They can be removed several times a day for laundering and for a bath. F. You may shower, no tub baths until cleared by your doctor. SPECIAL CARE INSTRUCTIONS: VERY IMPORTANT TO READ AND REVIEW A. There are a few signs you need to watch for after you are home. Call [facility] if you notice any of the followin. Increased severe knee pain. Some pain is expected especially when you exercise. 2. Increased swelling in your leg or knee; pain or swelling of the calf muscle in either lower leg. 3. Any fluid drainage from the incision. 4. Shortness of breath or chest pain. B. Please call [facility] at if you have any concerns or questions about your operation or recovery. The doctor or his nurse will return your call promptly. C. You must take antibiotics before dental work, bladder, bowel or other surgery. Your doctor will provide you with a permanent care to carry describing this precaution. IMPORTANT: * REMEMBER TO TAKE ASPIRIN, 81 MG, TWICE DAILY FOR 4 WEEKS UNLESS OTHERWISE DIRECTED. THIS IS YOUR BLOOD THINNER. * HIGH RISK PATIENTS MAY BE PRESCRIBED A STRONGER BLOOD THINNER. THIS WILL BE PROVIDED AT DISCHARGE. * CALL IF INCREASED PAIN, REDNESS, DRAINAGE OR FEVER GREATER THAT 101. * WEAR LEIGHA HOSE 20 HOURS PER DAY FOR 2 WEEKS. * ODILIA dressing - This is a large suction dressing covering your incision. This will help pull any excess drainage from the wound and allow your incision to heal properly. You may shower with this if you can keep the unit outside of the shower. If any bleeding or leakage is noted please call your doctor's office. This will remain on your incision for 7 days and then should be removed. This can be done yourself or by the home nursing staff if applicable. The entire unit is disposable once removed. Once removed, keep incision clean and dry. If redness or drainage is noted, please call your surgeon. . FOLLOW UP VISIT: If appointment is not already scheduled: Please call [facility] to make a follow-up appointment for 2 weeks after your surgery at . Pending Studies at Discharge: No Stand-Alone Forms: My [facility], Opioid Pain Management, Smoking Cessation Medications and DC Order Prescriptions: New acetaminophen 500 mg Tablet 1,000 mg PO Q8 21 Days Qty: 126 RF: 0 oxycodone 5 mg Tablet 5 - 10 mg PO Q6H PRN (Reason: pain) Qty: 30 RF: 0 cefadroxil 500 mg capsule 500 mg PO BID 10 Days Qty: 20 RF: 0 Continued multivitamin Tablet 1 tab PO QAM RF: 0 cetirizine [Zyrtec] 10 mg Tablet 5 mg PO QAM RF: 0 esomeprazole magnesium [Nexium] 40 mg Capsule,Delayed Release(Dr/Ec) 40 mg PO QAM RF: 0 docusate sodium [Stool Softener] 100 mg Capsule 100 mg PO QPM RF: 0 metronidazole [Metrogel] 1 % Gel 1 applic TOPICAL DAILY RF: 0 Probiotic 20 billion cell Capsule, Sprinkle 1 cap PO QAM RF: 0 Move Free Joint Health 750 mg-100 mg- 1.65 mg-108 mg Tablet 2 tab PO QPM RF: 0 Bentyl 20 mg PO UD PRN (Reason: ibs) RF: 0 cranberry 1 tab PO QAM RF: 0 Prevident 5000 Ortho Defense 1.1 % Paste 1 applic DENTAL DAILY RF: 0 scopolamine base 1 mg over 3 days Patch 3 Day 1 patch TRANSDERMAL DIRECTED PRN (Reason: Nausea And Vomiting) RF: 0 Changed aspirin 81 mg Tablet,Delayed Release (Dr/Ec) 81 mg PO BID 30 Days Qty: 0 RF: 0 Discharge Orders: Discharge Order (Routine); Ordered 01/15/20 Ordered By: Uriel Gonsalez/Other Patient Handouts: Prediabetes, Diabetes: Meal Planning, A1C Admission Data Admit Date/Time: 01/13/20 12:20 Attending Provider: Edward You Admit Provider: Edward You Primary Care Provider: Denita Browning Other Interventions: Discharge Summary Assessment (RN) Last Done: 01/15/20 10:15
== END 2020-01-15 12:00 | disposition home health service (06) ==
LOC: ASU 07:48 → 3N 07:48

== ENCOUNTER 2020-03-22 07:01 | Observation (INO) ==
[2020-02-29 15:06] LABS: Appearance Urine Clear (Clear); Bilirubin Urine Negative (Negative); Blood Urine Negative (Negative); Color Urine Yellow; Glucose Urine UA Negative (Negative); Ketones Urine Negative (Negative); Leukocyte Esterase Urine Negative (Negative); Nitrite Urine Negative (Negative); Protein Urine Negative (Negative); Specific Gravity Urine 1.011 (1.000-1.030); Urobilinogen Urine Negative (Negative)
[2020-02-29 15:08] LABS: Basophils # (auto) 0.02 K/uL (0-0.2); Basophils % (auto) 0.3 %; Eosinophils # (auto) 0.12 K/uL (0-0.5); Eosinophils % (auto) 1.7 %; Hematocrit (blood only) 41.5 % (37-47); Hemoglobin 13.5 g/dL (12.0-16.0); Immature Granulocytes # (auto) 0.02 K/uL (0.00-0.02); Immature Granulocytes % (auto) 0.3 %; Lymphocytes # (auto) 1.97 K/uL (1.2-3.4); Lymphocytes % (auto) 28.1 %; Mean Corpuscular Hemoglobin 29.9 pg (25-34); Mean Corpuscular Hgb Conc 32.5 g/dL (32-36); Mean Corpuscular Volume 91.8 fL (80-100); Mean Platelet Volume 10.6 fL (7.4-10.4); Monocytes # (auto) 0.65 K/uL (0.11-0.59); Monocytes % (auto) 9.3 %; Neutrophils # (auto) 4.23 K/uL (1.4-6.5); Neutrophils % (auto) 60.3 %; Platelet Count 290 K/uL (130-400); RDW Coefficient of Variation 14.2 % (11.5-14.5); RDW Standard Deviation 47.9 fL (36.4-46.3); Red Blood Count 4.52 M/uL (4.2-5.4); White Blood Count 7.01 K/uL (4.8-10.8)
[2020-02-29 15:15] LABS: Partial Thromboplastin Ratio 1.1; Partial Thromboplastin Time 30.1 Seconds (21.0-31.0); Prothrombin Time 10.9 Seconds (9.0-12.0)
[2020-02-29 15:31] LABS: Albumin Level 3.6 gm/dl (3.4-5.0); BUN Creatinine Ratio 30.6 (10-20); Calcium 10.1 mg/dl (8.5-10.1); Creatinine Clr Calc Pharmacy 55.4 ml/min; Est GFR (African American) 84.4; Est GFR (Non-African American) 72.8; Potassium 3.7 mmol/L (3.5-5.1)
[2020-03-01 07:42] LABS: Estimated Average Glucose 126 mg/dl
--- NOTE | 2020-03-02 12:01 | History & Physical Report ---
Date of Service March 02, 2020 date of surgery: 03/22/20 procedure: Left Total Knee Arthroplasty Assessment & Plan (1) Arthritis of knee, left: Risks and benefits of procedure discussed in detail today, patient would like to proceed with a Left total knee replacement at [facility] as scheduled. will obtain medical clearance prior to surgery as well as obtain PATs at [facility]. Will place on ASA 81mg po bid x 1 month post op, f/u 2 weeks post op for routine post-operative care and x-ray, sooner if having any problems. will make arrangements for HHPT at the time of discharge. At this point in time, has failed conservative measures and would like to proceed with surgical intervention. The risks and benefits have been discussed including, but not limited to, risk of infection, nerve injury, stiffness, loss of motion, failure to improve, etc. Reasonable outcomes and options of treatment were discussed. An explanation of appropriate alternatives to the procedure that may be advantageous were discussed and their risks and benefits, as well as the risks and benefits of not proceeding with treatment. I offered to answer any additional inquiries concerning the treatment involved. All the patient's questions were answered. The patient is agreeable, understanding of the treatment plan and alternatives, and wishes to proceed with the treatment plan. History of Present Illness Chief Complaint: left knee pain Primary Care Provider: Denita Browning DO Ms Oconnor is a 80 year old female who complains of Left knee pain, presents for pre-op eval prior to a left total knee replacement at [facility]. She presents with pain, stiffness and decreased motion in her left knee. She states that the symptoms have been chronic non-traumatic. her symptoms are described as moderate-severe. The pain is described as aching and throbbing. She rates her current pain as 4/10. The symptoms are aggravated by daily activities. she has tried previous cortisone injections, visco, CBD oil and voltaren gel, OTC NSAIDs without relief. she does use a cane to assist with ambulation. she recently had her right TKA and has recovered well. Allergies Allergy/AdvReac Type Severity Reaction Status Date / Time No Known Allergies Allergy Verified 02/25/20 10:26 Home Medications Home Medications Medication Instructions Recorded Confirmed Type Bentyl 20 mg PO UD PRN 12/09/19 02/25/20 History Move Free Joint Health 2 tab PO QPM 12/09/19 02/25/20 History Probiotic 1 cap PO QAM 12/09/19 02/25/20 History cetirizine [Zyrtec] 5 mg PO QAM 12/09/19 02/25/20 History cranberry 1 tab PO QAM 12/09/19 02/25/20 History docusate sodium [Stool Softener] 100 mg PO QPM 12/09/19 02/25/20 History esomeprazole magnesium [Nexium] 40 mg PO QAM 12/09/19 02/25/20 History fluoride (sodium) [Prevident 5000 1 applic DENTAL DAILY 12/09/19 02/25/20 History Ortho Defense] metronidazole [Metrogel] 1 applic TOPICAL QAM 12/09/19 02/25/20 History multivitamin 1 tab PO QAM 12/09/19 02/25/20 History scopolamine base 1 patch TRANSDERMAL DIRECTED PRN 01/13/20 02/25/20 History oxycodone 5 - 10 mg PO Q6H PRN #30 tab 01/15/20 02/25/20 Rx amoxicillin 2,000 mg PO UD 02/25/20 02/25/20 History aspirin 81 mg PO QAM 02/25/20 02/25/20 History ciprofloxacin HCl [Cipro] 500 mg PO BID PRN 02/25/20 02/25/20 History krill [id number]-[id number]-dha-epa 1 cap PO QAM 02/25/20 02/25/20 History Past Med/Surg History Medical History Cellulitis cellulitis at site of bug bite (RLE) significantly improving on abx Degenerative disc disease Diverticular disease GERD (gastroesophageal reflux disease) controlled History of DVT (deep vein thrombosis) 2006 (LUE) possibly r/t premarin/IV - treated with AC x 6 mo History of pulmonary embolism 2010 felt r/t premarin - treated with AC x 6 months IBS (irritable bowel syndrome) Mixed sleep apnea BiPAP Obesity Osteoarthritis TMJ dislocation h/o Urinary incontinence RIGHT Surgical History History of appendectomy History of arthroscopy of left knee MENISCUS REPAIR History of bilateral breast reduction surgery History of cardiac catheterization 2004 - no stents History of colonoscopy History of esophagogastroduodenoscopy (EGD) History of hysterectomy History of surgery pelvic floor lift History of tonsillectomy History of total knee replacement PONV (postoperative nausea and vomiting) Hx of PONV improved when scope patch used in the past. Per RN interview, patient does have home rx to take scope patch prior to surgery. Will need to evaluate patient AM DOS to see if patient used home rx for scope patch or t/c ordering AM DOS if not done prior to arrival PT STATES SHE WILL BE PLACING SCOPE PATCH NIGHT BEFORE SURGERY Family History Father Diabetes Other No family history of adverse response to anesthesia Social History Smoking Status: Never smoker Second Hand Exposure: No; Do You Dip or Chew Tobacco: No; Hx Alcohol Use: Yes Alcohol type: hard liquor Hx Substance Use: No Preferred Language: Luxembourgish Communication Ability: Effective Monitoring Engineer Required: No Beliefs That Will Affect Care: None Current Living Situation: Spouse Other Information That Helps Us Care for You: No Feels Safe at Home: Yes Safety Concerns: Feels Safe At This Time Assistive Devices: BiPap, Cane, Glasses and Walker Assistive Devices Comment: IMPLANT INCISOR-UPPER Review of Systems Review of Systems: All systems reviewed & are unremarkable except as noted in HPI & below Constitutional: no fever, no chills and no sweats Respiratory: no cough and no dyspnea Cardiovascular: no chest pain, no dyspnea and no orthopnea Gastrointestinal: no abdominal pain, no nausea and no vomiting Musculoskeletal: as per Subjective / HPI Physical Exam Physical Exam: HT: 5ft WT: 79.38kg Constitutional: WD/WN, vitals as above no acute distress Respiratory: normal respiratory effort, lungs clear to auscultation no respiratory distress, no labored breathing and does not use accessory muscles Cardiovascular: RRR, no murmur, no edema Gastrointestinal (Abdomen): normal bowel sounds, soft, nontender, no hepatosplenomegaly Musculoskeletal: Knee: + knee abnormal to inspection (left knee), + effusion (+1 effusion), + limited ROM of knee (ROM 0/3/110), + knee ROM with crepitation, + joint line tenderness (medial joint line) and + Estella's sign positive; no deformity, no skin erythema, no ecchymosis, no valgus laxity, no varus laxity, anterior drawer test negative, Sunil's sign negative and pivot shift test neg ative Results & Data Results & Data ([facility]) Laboratory Results Laboratory Results WBC 7.01 K/uL (4.8-10.8) 02/29/20 14:17 RBC 4.52 M/uL (4.2-5.4) 02/29/20 14:17 Hgb 13.5 g/dL (12.0-16.0) 02/29/20 14:17 Hct 41.5 % (37-47) 02/29/20 14:17 MCV 91.8 fL (80-100) 02/29/20 14:17 MCH 29.9 pg (25-34) 02/29/20 14:17 MCHC 32.5 g/dL (32-36) 02/29/20 14:17 RDW Std Deviation 47.9 fL (36.4-46.3) H 02/29/20 14:17 RDW Coeff of Poppy 14.2 % (11.5-14.5) 02/29/20 14:17 Plt Count 290 K/uL (130-400) 02/29/20 14:17 MPV 10.6 fL (7.4-10.4) H 02/29/20 14:17 Immature Gran % (Auto) 0.3 % 02/29/20 14:17 Neut % (Auto) 60.3 % 02/29/20 14:17 Lymph % (Auto) 28.1 % 02/29/20 14:17 [place] % (Auto) 9.3 % 02/29/20 14:17 Eos % (Auto) 1.7 % 02/29/20 14:17 Baso % (Auto) 0.3 % 02/29/20 14:17 Neut # (Auto) 4.23 K/uL (1.4-6.5) 02/29/20 14:17 Lymph # (Auto) 1.97 K/uL (1.2-3.4) 02/29/20 14:17 [place] # (Auto) 0.65 K/uL (0.11-0.59) H 02/29/20 14:17 Eos # (Auto) 0.12 K/uL (0-0.5) 02/29/20 14:17 Baso # (Auto) 0.02 K/uL (0-0.2) 02/29/20 14:17 Immature Gran # (Auto) 0.02 K/uL (0.00-0.02) 02/29/20 14:17 PT 10.9 Seconds (9.0-12.0) 02/29/20 14:17 INR 1.0 (0.9-1.1) 02/29/20 14:17 APTT 30.1 Seconds (21.0-31.0) 02/29/20 14:17 PTT Ratio 1.1 02/29/20 14:17 Sodium 137 mmol/L (136-145) 02/29/20 14:17 Potassium 3.7 mmol/L (3.5-5.1) 02/29/20 14:17 Chloride 103 mmol/L (98-107) 02/29/20 14:17 Carbon Dioxide 30 mmol/L (21-32) 02/29/20 14:17 Anion Gap 4.0 (3-11) 02/29/20 14:17 BUN 24 mg/dl (7-18) H 02/29/20 14:17 Creatinine 0.78 mg/dl (0.6-1.2) 02/29/20 14:17 Est Cr Clr Drug Dosing 55.4 ml/min 02/29/20 14:17 Est GFR ( Amer) 84.4 02/29/20 14:17 Est GFR (Non-Af Amer) 72.8 02/29/20 14:17 BUN/Creatinine Ratio 30.6 (10-20) H 02/29/20 14:17 Glucose 96 mg/dl (70-99) 02/29/20 14:17 Estimat Average Glucose 126 mg/dl 02/29/20 14:17 Hemoglobin A1c 6.0 % (4.5-5.6) H 02/29/20 14:17 Calcium 10.1 mg/dl (8.5-10.1) 02/29/20 14:17 Albumin 3.6 gm/dl (3.4-5.0) 02/29/20 14:17 Urine Color Yellow 02/29/20 14:17 Urine Appearance Clear (Clear) 02/29/20 14:17 Urine pH 6.0 (4.5-7.5) 02/29/20 14:17 Ur Specific [place] 1.011 (1.000-1.030) 02/29/20 14:17 Urine Protein Negative (Negative) 02/29/20 14:17 Urine Glucose (UA) Negative (Negative) 02/29/20 14:17 Urine Ketones Negative (Negative) 02/29/20 14:17 Urine Blood Negative (Negative) 02/29/20 14:17 Urine Nitrite Negative (Negative) 02/29/20 14:17 Urine Bilirubin Negative (Negative) 02/29/20 14:17 Urine Urobilinogen Negative (Negative) 02/29/20 14:17 Ur Leukocyte Esterase Negative (Negative) 02/29/20 14:17 Diagnostic Findings Left Knee X-ray: left knee series confirm advanced degenerative changes to the left knee, greatest medial compartments and patellofemoral joint, showing joint space narrowing, osteophyte formation and subchondral sclerosis. no acute bony pathology noted.
--- NOTE | 2020-03-10 10:20 | Anesthesiology Consultation ---
Date of Service March 10, 2020 Assessment & Plan (1) Encounter for pre-operative examination: [facility] in [facility] 12/2019 prior to R TKA. Noted at that time to be possible difficult intubation. R TKA 01/13/20 = SAB + PNB x 1 attempt, no complications. COVID Status: As of 02/24 nurse assessment, patient denies travel to endemic area, known exposure/sick contacts, or symptoms of COVID19. Preoperative COVID19 testing to// be completed on 03/15 at [facility] [place] [facility]. Chart Review Chart Review: Acceptable Risk for Surgery and Patient NOT seen in Pre Admission Testing History Surgery Operation Date: 03/22/20 11:35 Proposed Procedures p Left Total Knee Arthroplasty - Edward You DO Height/Weight Height: 5 ft Weight: 79.379 kg Allergies Allergy/AdvReac Type Severity Reaction Status Date / Time No Known Allergies Allergy Verified 02/25/20 10:26 Medications Home Medications Medication Instructions Recorded Confirmed Last Taken Bentyl 20 mg PO UD PRN 12/09/19 02/25/20 01/12/20 12:00 Move Free Joint [facility] 2 tab PO QPM 12/09/19 02/25/20 Unknown Probiotic 1 cap PO QAM 12/09/19 02/25/20 01/12/20 06:30 cetirizine [Zyrtec] 5 mg PO QAM 12/09/19 02/25/20 01/12/20 06:30 cranberry 1 tab PO QAM 12/09/19 02/25/20 12/30/19 06:30 docusate sodium [Stool Softener] 100 mg PO QPM 12/09/19 02/25/20 01/11/20 22:00 esomeprazole magnesium [Nexium] 40 mg PO QAM 12/09/19 02/25/20 01/13/20 05:30 fluoride (sodium) [Prevident 5000 1 applic DENTAL DAILY 12/09/19 02/25/20 01/12/20 21:30 Ortho Defense] metronidazole [Metrogel] 1 applic TOPICAL QAM 12/09/19 02/25/20 01/11/20 06:30 multivitamin 1 tab PO QAM 12/09/19 02/25/20 01/12/20 06:30 scopolamine base 1 patch TRANSDERMAL DIRECTED PRN 01/13/20 02/25/20 01/12/20 21:00 oxycodone 5 - 10 mg PO Q6H PRN #30 tab 01/15/20 02/25/20 Unknown amoxicillin 2,000 mg PO UD 02/25/20 02/25/20 Unknown aspirin 81 mg PO QAM 02/25/20 02/25/20 Unknown ciprofloxacin HCl [Cipro] 500 mg PO BID PRN 02/25/20 02/25/20 Unknown krill uop-owgps-2-dha-epa 1 cap PO QAM 02/25/20 02/25/20 Unknown Past Medical History Medical History (Updated 03/10/20 @ 10:18 by Vikram Villalta) Cellulitis cellulitis at site of bug bite (RLE) significantly improving on abx this was noted at 12/14/19 PAT appt Degenerative disc disease Diverticular disease GERD (gastroesophageal reflux disease) controlled History of DVT (deep vein thrombosis) 2006 (LUE) possibly r/t premarin/IV - treated with AC x 6 mo History of pulmonary embolism 2010 felt r/t premarin - treated with AC x 6 months IBS (irritable bowel syndrome) Mixed sleep apnea BiPAP Obesity Osteoarthritis TMJ dislocation h/o Urinary incontinence RIGHT Past Family History Family History Father Diabetes Other No family history of adverse response to anesthesia Past Surgical History Surgical History (Updated 03/10/20 @ 10:34 by Vikram Villalta) History of appendectomy History of arthroscopy of left knee MENISCUS REPAIR History of bilateral breast reduction surgery History of cardiac catheterization 2004 - no stents History of colonoscopy History of esophagogastroduodenoscopy (EGD) History of hysterectomy History of surgery pelvic floor lift History of tonsillectomy History of total knee replacement 01/13/[address] [facility]. SAB and PNB x 1 attempt, no complications. PONV (postoperative nausea and vomiting) Hx of PONV improved when scope patch used in the past. Per RN interview for 01/13/20 TKA, patient does have home rx to take scope patch prior to surgery. Will need to evaluate patient AM DOS to see if patient used home rx for scope patch or consider ordering AM DOS if not done prior to arrival. No mention o f scop patch in nursing notes from 01/12 TKA. Social History Smoking Status: Never smoker Do You Dip or Chew Tobacco: No Hx Alcohol Use: Yes Alcohol type: hard liquor alcohol intake frequency: holidays/special occasions only Hx Substance Use: No substance use type: does not use Testing Laboratory Results 02/29/20 14:17 02/29/20 14:17 PT 10.9 Seconds (9.0-12.0) 02/29/20 14:17 INR 1.0 (0.9-1.1) 02/29/20 14:17 APTT 30.1 Seconds (21.0-31.0) 02/29/20 14:17 Hemoglobin A1c 6.0 % (4.5-5.6) H 02/29/20 14:17 Urine Color Yellow 02/29/20 14:17 Urine Appearance Clear (Clear) 02/29/20 14:17 Urine pH 6.0 (4.5-7.5) 02/29/20 14:17 Ur Specific [place] 1.011 (1.000-1.030) 02/29/20 14:17 Urine Protein Negative (Negative) 02/29/20 14:17 Urine Glucose (UA) Negative (Negative) 02/29/20 14:17 Urine Ketones Negative (Negative) 02/29/20 14:17 Urine Nitrite Negative (Negative) 02/29/20 14:17 Ur Leukocyte Esterase Negative (Negative) 02/29/20 14:17 Electrocardiogram Date: 12/14/19 Findings: + NSR @ (65bpm) Left axis deviation. Chest X-Ray Date: 12/14/19 Findings: + NAD
[~2020-03-22 07:01] MED LIST changes: +BUPIVACAINE 0.5 % 5 MG/1 ML PF 10ML VIAL ONE; -CEFAZOLIN 2000MG 2,000 MG/15 ML SYR IV SCH; +EPINEPHrine INJ 1 MG/ML AMP ONE; +MISSING PHYSICIAN SIGNATURE ON ORDER SCH; +ROPIVACAINE 0.5% 5 MG/ML 30 ML VIAL ONE; +ROPIVACAINE 0.5% HCL/PF 150 MG, BUPIVACAINE 0.5% MPF 30 ML, EPINEPHrine 30MG/30ML (OR U... INFIL SCH; -ROPIVACAINE 0.5% HCL/PF 150 MG, BUPIVACAINE 0.5% MPF 30 ML, EPINEPHrine 30MG/30ML (OR U... INSTIL SCH; +ceFAZolin 2000MG 2,000 MG/15 ML SYR IV SCH; -dexAMETHasone 4 MG TAB PO SCH
[2020-03-22] MEDS ORDERED: MIDAZOLAM HCL 1 MG/ML 2ML VIAL ONE (07:13)
[2020-03-22] MEDS ORDERED: fentaNYL citrate 100 MCG/2 ML VIAL ONE (07:13)
[2020-03-22] MEDS ORDERED: PROPOFOL IV EMULSION 10 MG/ML 20 ML VIAL IV ONE ×2 (07:15)
[2020-03-22] MEDS ORDERED: LIDOCAINE HCL 2% 2 ML VIAL/AMP(20MG/ML) INFIL ONE (07:15)
[2020-03-22] MEDS ORDERED: ONDANSETRON INJ 2 MG/ML 2 ML VIAL ONE (07:16)
--- NOTE | 2020-03-22 07:33 | History & Physical Bridge Note ---
Date of Service March 22, 2020 History & Physical Bridge Note I have examined the patient, reviewed the History & Physical and in the interval since the performance of the History & Physical I have noted the following changes of clinical significance: no changes noted
[2020-03-22] MEDS ORDERED: LABETALOL HCL IV 5 MG/ML 20ML IV PRN (07:34)
[2020-03-22] MEDS ORDERED: ONDANSETRON INJ 2 MG/ML 2 ML VIAL IV PRN ×2 (07:34→12:08)
[2020-03-22] MEDS ORDERED: ePHEDrine sulfate 50 MG/ML AMP IV PRN (07:34)
[2020-03-22] MEDS ORDERED: fentaNYL citrate 100 MCG/2 ML VIAL IV PRN (07:34)
[2020-03-22] MEDS ORDERED: MEPERIDINE HCL 25 MG/ML CARP/VIAL IV PRN (07:34)
[2020-03-22] MEDS ORDERED: ATROPINE SULFATE 0.1 MG/ML 10ML SYR IV PRN (07:34)
[2020-03-22] MEDS ORDERED: HYDROmorphone INJ 1 MG/ML SYRINGE IV PRN (07:34)
[2020-03-22] MEDS ORDERED: PHENYLEPHRINE 100MCG/ML 5ML SYR IV PRN (07:34)
[2020-03-22] MEDS ORDERED: ORTHO JOINT ANESTHETIC ONE (08:19)
[2020-03-22] MEDS ORDERED: BACITRACIN INJ 50,000 UNIT VIAL ONE (08:19)
[2020-03-22] MEDS ORDERED: PHENYLEPHRINE 100MCG/ML 5ML SYR ONE (09:29)
[2020-03-22] MEDS ORDERED: ePHEDrine sulfate 50 MG/ML SYR ONE (09:29)
--- NOTE | 2020-03-22 09:50 | Operative Report ---
Post Operative Report Pre & Post Diagnosis Operation Date: 03/22/20 08:35 Pre-Op Diagnosis: Osteoarthritis, Left Knee Post-Op Diagnosis: Osteoarthritis, Left Knee I identified the patient and participated in the time-out.: Yes Procedure Operation Date: 03/22/20 08:35 Actual Procedures p Left Total Knee Arthroplasty(Left) utilizing [employer] journey 2 patient matched total knee arthroplasty size 3 femur to tibia 13 constrained polytwenty 9 oval patella- Edward You DO Surgeon Edward You DO [employer] ESPINOSA Estimated Blood Loss 5 Findings Consistent with Post-Op Diagnosis Patient presents with severe end-stage tricompartmental degenerative joint disease left knee failed attempted conservative management patient had varus alignment with lateral collateral ligament laxity had [id number] eburnated bone with a marginal osteophyte subchondral sclerosis moderate to large effusion Specimens Bone and cartilage Drains Medium bore Hemovac Anesthesia Type MAC Spinal Regional Complications none Disposition Accompanied Patient To Recovery: No Disposition: Recovery Room Indications Patient presents with severe end-stage tricompartmental degenerative joint disease failing attempts at conservative management the above intraoperative findings noted patient failed attempted corticosteroid injection Visco supplementation relative rest activity modification bracing physical therapy the above findings were noted Description of Procedure After proper prepping and draping of the left lower extremity anterior midline incision was made over the region of the extensor extensor mechanism after meticulous hemostasis was obtained and maintained in subcutaneous tissues a medial parapatellar incision was made The patella was subluxed lateralward the medial lateral gutter were cleaned from any hypertrophic synovitis and scar tissue of the distal femoral block was placed and the distal femoral osteotomy cut was made subsequently the chamfers anterior and posterior osteotomy cuts were made utilizing the 4-in-1 block the tibia was subsequently subluxed ante riorward medial and ateral meniscal remnants were excised in their entirety remnants of the anterior and posterior cruciate ligaments were excised in their entirety excellent exposure of the proximal tibia was obtained the tibial osteotomy guide was placed on the proximal tibial osteotomy cut was made once again the knee was irrigated with copious amounts of sterile saline solution the patella was subsequently everted lateralward thickened scar tissue around the patella was removed the patella was subsequently cut utilizing a freehand technique and was drilled prepared for final preparation and placement of patella socially flexion-extension gaps were checked and the equal and symmetric trials were placed to the appropriate femoral and tibial trials with poly-spacer being placed for equal flexion and extension gaps and full range of motion including extension to 0 and flexion to 140 the trial components after having been taken to recovery range of motion was subsequently removed meticulous hemostasis was obtained and maintained subsequently a knee block injection of joint cocktail including ropivacaine 0.5% 150 mg. Bupivacaine 0.5% epinephrine 1-200,030 mL's toradol 30 mg dexamethasone 4 mg ketamine 10 mg clonidine 100 micrograms normal saline solution 30 mg was infiltrated into the soft tissues of the posterior knee medial lateral gutters and periosteal synovium special att ention was paid to protect neurovascular structures at all times subsequently trial components having been removed the knee was irrigated with sterile saline solution. debris was removed the proximal tibia was subsequently prepared and was made ready for the placement of the tibial component tibial component was also cemented and tamped into position the femoral component was subsequently placed and cemented in the position the patellar component was subsequently cemented in position because hemostasis once again obtained and maintained wound having been thoroughly irrigated with debridement and debridement lavage was performed as well as a medial parapatellar incision closed with #1 Vicryl in interrupted fashion subcutaneous was closed with #2 Vicryl skin was closed with skin clips. PA-C was necessary for prepping and drapping as well as wound closure of deep fascia Sub cutaneous tissue and skin and was necessary for the case. A sterile compressive dressing was placed patient was taken to recovery in stable condition of report dictated by Avelino I attest to the content of the Intraoperative Record and any orders documented therein. Any exceptions are noted below. I attest to the content of the Intraoperative Record and any orders documented therein. Any exceptions are noted below.
--- NOTE | 2020-03-22 11:10 | Anesthesiology Progress Note ---
Date of Service March 22, 2020 Anesthesia Post Procedure Vital Signs Vital Signs: Temp Pulse Pulse Resp BP BP Pulse Ox 03/22/20 11:05 85 13 94/53 L 93 03/22/20 10:55 75 12 103/56 L 92 03/22/20 10:45 77 18 104/55 L 98 03/22/20 10:35 36.7 C 81 16 106/63 96 03/22/20 07:42 36.7 C 70 16 126/74 94 Pain Intensity Left Knee: Pain Intensity: 1 Transfer of Care Handoff Completed per policy Notes Mental Status: alert / awake / arousable Patient Amnestic to Procedure: Yes Nausea / Vomiting: adequately controlled Pain: adequately controlled Airway Patency, RR, SpO2: stable & adequate BP & HR: stable & adequate Hydration State: stable & adequate Neuraxial Anesthesia: was administered and sensory block is resolving Anesthetic Complications: no major complications apparent and Pt Satisfied with anesthetic care
--- NOTE | 2020-03-22 11:10 | XRay Report ---
TWO VIEWS LEFT KNEE CLINICAL HISTORY: Postoperative examination. FINDINGS: AP and crosstable lateral portable views of the left knee are obtained. A left knee arthrop lasty is in near anatomic alignment. There has been undersurface remodeling of the patella. No acute fracture is seen. There are expected postoperative changes around the knee including a surgical drain , soft tissue edema, and subcutaneous gas. IMPRESSION: Expected postoperative changes status post left knee arthroplasty. No acute fracture is s een. ACT 112: Negative or not required by law. Electronically signed by: Claude Lewis M.D. 03/22/2020 11:09 AM
[2020-03-22] MEDS ORDERED: HYDROmorphone INJ 0.5 MG/0.5 ML SYR IV PRN (12:08)
[2020-03-22] MEDS ORDERED: SODIUM CHLORIDE 0.9% 1000ML 1,000 ML IV SCH (12:08)
[2020-03-22] MEDS ORDERED: NALOXONE HCL 0.4 MG/1 ML VIAL/CARP IV PRN (12:08)
[2020-03-22] MEDS ORDERED: bisacodyL 10 MG SUPP PR PRN (12:08)
[2020-03-22] MEDS ORDERED: MAGNESIUM HYDROXIDE SUSP 30 ML UDC PO PRN (12:08)
[2020-03-22] MEDS ORDERED: DICYCLOMINE HCL 20 MG TAB PO PRN (12:28)
[2020-03-22] MEDS: ACETAMINOPHEN 500 MG TAB PO SCH ×2 (13:43→21:37)
[2020-03-22] MEDS: FERROUS GLUCONATE 324 MG TAB PO SCH (17:44)
[2020-03-22] MEDS: ceFAZolin 2000MG 2,000 MG/15 ML SYR IV SCH (17:44)
[2020-03-22] MEDS ORDERED: CYCLOBENZAPRINE HCL 10 MG TAB PO PRN (19:41)
[2020-03-22] MEDS: ASPIRIN 81 MG ECTAB PO SCH (21:36)
[2020-03-22] MEDS: DOCUSATE SODIUM 100 MG CAP PO SCH (21:36)
[2020-03-22] MEDS: SENNA 8.6 MG TAB PO SCH (21:37)
[2020-03-22] MEDS: oxyCODONE HCL IR 5 MG TAB (IMMEDIATE RELEASE) PO PRN (21:38)
[2020-03-23] MEDS: oxyCODONE HCL IR 5 MG TAB (IMMEDIATE RELEASE) PO PRN ×5 (01:55→22:30)
[2020-03-23] MEDS: ceFAZolin 2000MG 2,000 MG/15 ML SYR IV SCH (01:56)
[2020-03-23] MEDS: ACETAMINOPHEN 500 MG TAB PO SCH ×3 (05:45→21:29)
[2020-03-23 07:31] LABS: Hematocrit (blood only) 34.2 % (37-47); Hemoglobin 11.1 g/dL (12.0-16.0); Mean Corpuscular Hemoglobin 29.6 pg (25-34); Mean Corpuscular Hgb Conc 32.5 g/dL (32-36); Mean Corpuscular Volume 91.2 fL (80-100); Mean Platelet Volume 10.4 fL (7.4-10.4); Platelet Count 204 K/uL (130-400); RDW Coefficient of Variation 14.2 % (11.5-14.5); RDW Standard Deviation 47.3 fL (36.4-46.3); Red Blood Count 3.75 M/uL (4.2-5.4); White Blood Count 9.69 K/uL (4.8-10.8)
[2020-03-23 07:56] LABS: BUN Creatinine Ratio 21.1 (10-20); Calcium 9.4 mg/dl (8.5-10.1); Creatinine Clr Calc Pharmacy 60.7 ml/min; Est GFR (Non-African American) 80.2; Potassium 4.1 mmol/L (3.5-5.1)
--- NOTE | 2020-03-23 08:31 | Orthopedic Progress Note ---
Date of Service March 23, 2020 Assessment & Plan (1) Arthritis of knee, left: Postop day 1 status post left total knee arthroplasty. PT/OT protocols. Weightbearing as tolerated. DVT prophylaxis-aspirin p.o. twice daily, SCDs, LEIGHA maldonado. Pain management as written. DC planning-patient is planning for home health services upon discharge. Admission and Anticipated Discharge Date Admission Date: March 22, 2020 Subjective Postop day 1 Patient lying in bed this morning awake and alert. Pain controlled currently. Denies any shortness of breath, chest pain, lightheadedness. No complaints. Physical Exam Physical Exam: Dressings are clean, dry, and intact. Calves are soft and nontender. Neurovascular is intact. Toes are mobile. She has good dorsiflexion and plantarflexion of the left knee. Hemovac drainage of 75 mL from the previous shift. Results & Data ([facility]) Vital Signs (Past 12 Hours) Vital Signs Temp Pulse Resp BP Pulse Ox 03/23/20 08:23 36.7 C 64 16 117/73 95 03/23/20 03:05 36.6 C 66 16 126/74 95 03/23/20 00:10 36.7 C 66 14 104/52 L 95 Laboratory Results Laboratory Results WBC 9.69 K/uL (4.8-10.8) 03/23/20 06:24 RBC 3.75 M/uL (4.2-5.4) L 03/23/20 06:24 Hgb 11.1 g/dL (12.0-16.0) L 03/23/20 06:24 Hct 34.2 % (37-47) L 03/23/20 06:24 MCV 91.2 fL (80-100) 03/23/20 06:24 MCH 29.6 pg (25-34) 03/23/20 06:24 MCHC 32.5 g/dL (32-36) 03/23/20 06:24 RDW Std Deviation 47.3 fL (36.4-46.3) H 03/23/20 06:24 RDW Coeff of Poppy 14.2 % (11.5-14.5) 03/23/20 06:24 Plt Count 204 K/uL (130-400) 03/23/20 06:24 MPV 10.4 fL (7.4-10.4) 03/23/20 06:24 Immature Gran % (Auto) 0.3 % 02/29/20 14:17 Neut % (Auto) 60.3 % 02/29/20 14:17 Lymph % (Auto) 28.1 % 02/29/20 14:17 [place] % (Auto) 9.3 % 02/29/20 14:17 Eos % (Auto) 1.7 % 02/29/20 14:17 Baso % (Auto) 0.3 % 02/29/20 14:17 Neut # (Auto) 4.23 K/uL (1.4-6.5) 02/29/20 14:17 Lymph # (Auto) 1.97 K/uL (1.2-3.4) 02/29/20 14:17 [place] # (Auto) 0.65 K/uL (0.11-0.59) H 02/29/20 14:17 Eos # (Auto) 0.12 K/uL (0-0.5) 02/29/20 14:17 Baso # (Auto) 0.02 K/uL (0-0.2) 02/29/20 14:17 Immature Gran # (Auto) 0.02 K/uL (0.00-0.02) 02/29/20 14:17 PT 10.9 Seconds (9.0-12.0) 02/29/20 14:17 INR 1.0 (0.9-1.1) 02/29/20 14:17 APTT 30.1 Seconds (21.0-31.0) 02/29/20 14:17 PTT Ratio 1.1 02/29/20 14:17 Sodium 139 mmol/L (136-145) 03/23/20 06:24 Potassium 4.1 mmol/L (3.5-5.1) 03/23/20 06:24 Chloride 109 mmol/L (98-107) H 03/23/20 06:24 Carbon Dioxide 26 mmol/L (21-32) 03/23/20 06:24 Anion Gap 4.0 (3-11) 03/23/20 06:24 BUN 15 mg/dl (7-18) 03/23/20 06:24 Creatinine 0.72 mg/dl (0.6-1.2) 03/23/20 06:24 Est Cr Clr Drug Dosing 60.7 ml/min 03/23/20 06:24 Est GFR ( Amer) 93.0 03/23/20 06:24 Est GFR (Non-Af Amer) 80.2 03/23/20 06:24 BUN/Creatinine Ratio 21.1 (10-20) H 03/23/20 06:24 Glucose 94 mg/dl (70-99) 03/23/20 06:24 Estimat Average Glucose 126 mg/dl 02/29/20 14:17 Hemoglobin A1c 6.0 % (4.5-5.6) H 02/29/20 14:17 Calcium 9.4 mg/dl (8.5-10.1) 03/23/20 06:24 Albumin 3.6 gm/dl (3.4-5.0) 02/29/20 14:17 Urine Color Yellow 02/29/20 14:17 Urine Appearance Clear (Clear) 02/29/20 14:17 Urine pH 6.0 (4.5-7.5) 02/29/20 14:17 Ur Specific [place] 1.011 (1.000-1.030) 02/29/20 14:17 Urine Protein Negative (Negative) 02/29/20 14:17 Urine Glucose (UA) Negative (Negative) 02/29/20 14:17 Urine Ketones Negative (Negative) 02/29/20 14:17 Urine Blood Negative (Negative) 02/29/20 14:17 Urine Nitrite Negative (Negative) 02/29/20 14:17 Urine Bilirubin Negative (Negative) 02/29/20 14:17 Urine Urobilinogen Negative (Negative) 02/29/20 14:17 Ur Leukocyte Esterase Negative (Negative) 02/29/20 14:17 Blood Type O Positive 03/22/20 07:29 Antibody Screen NEGATIVE 03/22/20 07:29
[2020-03-23] MEDS: MULTIVITAMIN TAB PO SCH (08:57)
[2020-03-23] MEDS: DOCUSATE SODIUM 100 MG CAP PO SCH ×2 (08:57→21:29)
[2020-03-23] MEDS: ADVANCED PROBIOTIC 1250 MG CAPSULE PO SCH (08:57)
[2020-03-23] MEDS: CETIRIZINE HCL 10 MG TABLET PO SCH (08:57)
[2020-03-23] MEDS: PANTOprazole 40 MG TAB PO SCH (08:57)
[2020-03-23] MEDS: FERROUS GLUCONATE 324 MG TAB PO SCH ×2 (08:57→18:32)
[2020-03-23] MEDS: ASPIRIN 81 MG ECTAB PO SCH ×2 (09:02→21:29)
[2020-03-23] MEDS: SENNA 8.6 MG TAB PO SCH (21:29)
[2020-03-24] MEDS: oxyCODONE HCL IR 5 MG TAB (IMMEDIATE RELEASE) PO PRN ×3 (02:42→10:57)
[2020-03-24] MEDS: ACETAMINOPHEN 500 MG TAB PO SCH (06:19)
[2020-03-24 08:37] VITALS: BP 125/76; PULSE 84; TEMP 97.7; O2SAT 93
[2020-03-24] MEDS: MULTIVITAMIN TAB PO SCH (09:12)
[2020-03-24] MEDS: ADVANCED PROBIOTIC 1250 MG CAPSULE PO SCH (09:12)
[2020-03-24] MEDS: DOCUSATE SODIUM 100 MG CAP PO SCH (09:12)
[2020-03-24] MEDS: FERROUS GLUCONATE 324 MG TAB PO SCH (09:12)
[2020-03-24] MEDS: CETIRIZINE HCL 10 MG TABLET PO SCH (09:12)
[2020-03-24] MEDS: ASPIRIN 81 MG ECTAB PO SCH (09:12)
[2020-03-24] MEDS: PANTOprazole 40 MG TAB PO SCH (09:13)
--- NOTE | 2020-03-24 10:04 | Orthopedic Progress Note ---
Date of Service March 24, 2020 Assessment & Plan (1) Arthritis of knee, left: Postop day 2 status post left total knee arthroplasty. PT/OT protocols. Weightbearing as tolerated. Progressing well with her physical therapy. DVT prophylaxis-aspirin p.o. twice daily, SCDs, LEIGHA maldonado. Pain management as written. DC planning-patient is planning for home health services upon discharge. Plan for discharge to home today. Admission and Anticipated Discharge Date Admission Date: March 22, 2020 Subjective Postop day 2 Currently sitting up in bed watching TV. She just finished her physical therapy session. In speaking with the physical therapist, the patient has done quite well with her ambulation and is negotiating steps well. She states she is feeling well and her pain is controlled. No complaints at this point in time. Physical Exam Physical Exam: Incision is clean, dry, and intact. Calves are soft and nontender. Neurovascular is intact. Toes are mobile. Results & Data ([facility]) Vital Signs (Past 12 Hours) Vital Signs Temp Pulse Resp BP Pulse Ox 03/24/20 08:36 36.5 C 84 16 125/76 93 03/23/20 23:08 37.1 C 96 H 16 146/83 H 92
--- NOTE | 2020-03-25 11:50 | Discharge Summary ---
Date of Service March 25, 2020 Admission HPI Per Admitting Provider Ms Oconnor is a 80 year old female who complains of Left knee pain, presents for pre-op eval prior to a left total knee replacement at [facility]. She presents with pain, stiffness and decreased motion in her left knee. She states that the symptoms have been chronic non-traumatic. her symptoms are described as moderate-severe. The pain is described as aching and throbbing. She rates her current pain as 4/10. The symptoms are aggravated by daily activities. she has tried previous cortisone injections, visco, CBD oil and voltaren gel, OTC NSAIDs without relief. she does use a cane to assist with ambulation. she recently had her right TKA and has recovered well. Admission Exam Per Admitting Provider Physical Exam: HT: 5ft WT: 79.38kg Constitutional: WD/WN, vitals as above no acute distress Respiratory: normal respiratory effort, lungs clear to auscultation no respiratory distress, no labored breathing and does not use accessory muscles Cardiovascular: RRR, no murmur, no edema Gastrointestinal (Abdomen): normal bowel sounds, soft, nontender, no hepatosplenomegaly Musculoskeletal: Knee: + knee abnormal to inspection (left knee), + effusion (+1 effusion), + limited ROM of knee (ROM 0/3/110), + knee ROM with crepitation, + joint line tenderness (medial joint line) and + Estella's sign positive; no deformity, no skin erythema, no ecchymosis, no valgus laxity, no varus laxity, anterior drawer test negative, Sunil's sign negative and pivot shift test negative Principal Diagnosis Left Knee Djd Discharge Exam Physical Exam: Incision is clean, dry, and intact. Calves are soft and nontender. Neurovascular is intact. Toes are mobile. Results & Data ([facility]) Vital Signs (Past 12 Hours) Vital Signs Temp Pulse Resp BP Pulse Ox 03/24/20 08:36 36.5 C 84 16 125/76 93 03/23/20 23:08 37.1 C 96 H 16 146/83 H 92 Discharge Data Allergies Allergy/AdvReac Type Severity Reaction Status Date / Time No Known Allergies Allergy Verified 03/22/20 07:36 Consultations 03/22/20 12:08 Consult Case Management - Discharge Planning Routine Procedures Performed Operation Date: 03/22/20 08:35 Actual Procedures p Left Total Knee Arthroplasty(Left) - Edward You DO Ordered Studies 03/22/20 05:00 US - OR guided needle placemen Routine Hospital Course (1) Arthritis of knee, left: Pt admitted on the above noted date and underwent the noted procedure without difficulty. On the first POD, Patient was lying in bed that morning awake and alert. Pain controlled currently. Denies any shortness of breath, chest pain, lightheadedness. No complaints. Dressings are clean, dry, and intact. Calves are soft and nontender. Neurovascular is intact. Toes are mobile. She has good dorsiflexion and plantarflexion of the left knee. Hemovac drainage of 75 mL from the previous shift. Hgb 11.1. Pt was started on PT/OT protocols and continued on DVT prophylaxis and pain management. By POD 2, she was progressing well with her PT/OT. In discussion with Physical Therapist, pt was a good candidate for home health services. Incision was benign. Calves were soft, NT. NV intact. VSS. She was remaining stable and progressing well with PT and was felt she could be dc'd to home. Total Time Total Time Spent Total Time Spent (In Minutes): 5 Discharge Plan Discharge Items Patient Disposition: Home - Home Health Services Reason For Visit: Osteoarthritis, Left Knee; M01.818 PRE-OP Discharge Diagnosis: Osteoarthritis Left Knee Activity: Per Instructions section Weightbearing: Left weightbearing Weightbearing Comment: as tolerated with walker Non-emergency contact: Surgeon Call non-emergency contact if: your pain is not controlled, your temperature is above 101.5, your wound has increased redness and your wound has increased drainage Follow-up/Referrals: Denita Browning DO [Primary Care Provider] - Diet: Regular Addtl Attending Provider Instructions: ACTIVITY RECOMMENDATIONS: SELF CARE INSTRUCTIONS AFTER TOTAL KNEE REPLACEMENT A. You may need to continue a physical therapy program after discharge from the hospital. There are several options available to you. Your doctor will assist you in selecting the best one for you. 1. An out-patient facility 2 to 3 times a week for therapy or home therapy. 2. Continue working on all exercises taught to you in the hospital. Your goals should be to increase bending of your knee to 90 degrees and beyond and to fully straighten your knee. B. You may progress at your own pace from walking with a walker or crutches to a cane; then to no assistive devices. C. Make walking a part of your daily routine. Be up as much as comfortable with rest periods throughout the day. Rest with leg elevation is very important. Use the ice wrap frequently for the first 3-4 weeks. D. There are no restrictions on activities. You may ride in a car, shop, participate in spike machine heater and all social activities. E. Wear the long elastic stockings (LEIGHA hose) 20 hours a day for 2 weeks after surgery. They can be removed several times a day for laundering and for a bath. F. You may shower, no tub baths until cleared by your doctor. SPECIAL CARE INSTRUCTIONS: VERY IMPORTANT TO READ AND REVIEW A. There are a few signs you need to watch for after you are home. Call [facility] if you notice any of the followin. Increased severe knee pain. Some pain is expected especially when you exercise. 2. Increased swelling in your leg or knee; pain or swelling of the calf muscle in either lower leg. 3. Any fluid drainage from the incision. 4. Shortness of breath or chest pain. B. Please call [facility] at if you have any concerns or questions about your operation or recovery. The doctor or his nurse will return your call promptly. C. You must take antibiotics before dental work, bladder, bowel or other surgery. Your doctor will provide you with a permanent care to carry describing this precaution. IMPORTANT: * REMEMBER TO TAKE ASPIRIN, 81 MG, TWICE DAILY FOR 4 WEEKS UNLESS OTHERWISE DIRECTED. THIS IS YOUR BLOOD THINNER. * HIGH RISK PATIENTS MAY BE PRESCRIBED A STRONGER BLOOD THINNER. THIS WILL BE PROVIDED AT DISCHARGE. * CALL IF INCREASED PAIN, REDNESS, DRAINAGE OR FEVER GREATER THAT 101. * WEAR LEIGHA HOSE 20 HOURS PER DAY FOR 2 WEEKS. * DERMABOND Prineo- This is a mesh tape dressing that is covered with glue. It should remain in place until the incision is properly healed, usually 10-14 days. This dressing is designed to naturally slough off. You may trim the excess mesh tape as it peels off. Incision may be briefly wet in a shower. Dry immediately by blotting with a clean, dry towel. Do not bath or swim until instructed by your doctor. Do not scratch, rub, or pick at the dressing. Do not apply any topical ointments or lotions until dressing is completely removed and/or instructed by your doctor. There may be a small piece of suture material at one end of your incision. Do not pull or trim this. If it is bothersome or catching on clothing, you may cover it with a band-aid. Call the office with any questions about your wound. . FOLLOW UP VISIT: If appointment is not already scheduled: Please call [facility] to make a follow-up appointment for 2 weeks after your surgery at . Stand-Alone Forms: [employer], Smoking Cessation Medications and DC Order Prescriptions: New acetaminophen 500 mg Tablet 1,000 mg PO Q8 14 Days Qty: 84 RF: 0 aspirin 81 mg Tablet,Delayed Release (Dr/Ec) 81 mg PO BID 30 Days Qty: 60 RF: 0 cefadroxil 500 mg capsule 500 mg PO BID Qty: 28 RF: 1 polyethylene glycol 3350 [Miralax] 17 gram powder in packet 17 g PO DAILY PRN (Reason: constipation) Qty: 5 RF: 0 oxycodone 5 mg Tablet 5 - 10 mg PO Q4H MDD 6 PRN (Reason: pain) Qty: 36 RF: 0 Continued krill [id number] 300-90 (27-45) mg Capsule 1 cap PO QAM RF: 0 ciprofloxacin HCl [Cipro] 500 mg Tablet 500 mg PO BID PRN (Reason: Abdominal Discomfort) RF: 0 multivitamin Tablet 1 tab PO QAM RF: 0 cetirizine [Zyrtec] 10 mg Tablet 5 mg PO QAM RF: 0 esomeprazole magnesium [Nexium] 40 mg Capsule,Delayed Release(Dr/Ec) 40 mg PO QAM RF: 0 docusate sodium [Stool Softener] 100 mg Capsule 100 mg PO QPM RF: 0 metronidazole [Metrogel] 1 % Gel 1 applic TOPICAL QAM RF: 0 Probiotic 20 billion cell Capsule, Sprinkle 1 cap PO QAM RF: 0 Bentyl 20 mg PO UD PRN (Reason: ibs) RF: 0 cranberry 1 tab PO QAM RF: 0 fluoride (sodium) [Prevident 5000 [employer]] 1.1 % Paste 1 applic DENTAL DAILY RF: 0 scopolamine base 1 mg over 3 days Patch 3 Day 1 patch TRANSDERMAL DIRECTED PRN (Reason: Nausea And Vomiting) RF: 0 Discontinued aspirin 81 mg tablet,delayed release (DR/EC) 81 mg PO QAM RF: 0 Move Free Joint Health 750 mg-100 mg- 1.65 mg-108 mg Tablet 2 tab PO QPM RF: 0 oxycodone 5 mg Tablet 5 - 10 mg PO Q6H PRN (Reason: pain) Qty: 30 RF: 0 Discharge Orders: Discharge Order (Routine); Ordered 03/24/20 Ordered By: tIz Gonsalez/Other Patient Handouts: Eating Heart-Healthy Foods, A1C Admission Data Admit Date/Time: 03/22/20 10:42 Attending Provider: Edward You Admit Provider: Edward You Primary Care Provider: Denita Browning Other Interventions: Discharge Summary Assessment (RN) Last Done: 03/24/20 12:00
== END 2020-03-24 13:48 | disposition home health service (06) ==
LOC: 3E 07:01 → ASU 07:01
DX: Z86.711 Personal history of pulmonary embolism; Z79.82 Long term (current) use of aspirin; K21.9 Gastro-esophageal reflux disease without esophagitis; Z79.899 Other long term (current) drug therapy; M19.90 Unspecified osteoarthritis, unspecified site; G47.30 Sleep apnea, unspecified; M17.12 Unilateral primary osteoarthritis, left knee; Z20.828 Contact with and (suspected) exposure to other viral communicable diseases; K58.9 Irritable bowel syndrome, unspecified; E66.9 Obesity, unspecified; Z86.718 Personal history of other venous thrombosis and embolism